=== PATIENT | female | born 1950 ===

== ENCOUNTER 2020-10-10 11:04 | Inpatient (IN) | payer OTHER, SELFPAY ==
[2020-10-10] VITALS (8 sets, daily range): BP systolic 123–168; BP diastolic 73–92; PULSE 80–89; RESP 16–24; TEMP 36.6–37.6; O2SAT 95–98
--- NOTE | 2020-10-10 11:21 | DI.CT_ITS ---
EXAM: CT ABDOMEN PELVIS W CLINICAL HISTORY: Abd pain, h/o diverticulitis, unknown abd surg. TECHNIQUE: Imaging Protocol: Axial computed tomography images with coronal and sagittal reformatted images were created and reviewed CONTRAST MATERIAL: Intravenous: Omnipaque 350 Contrast volume:100 ml Oral: no COMPARISON: No exams were available for comparison FINDINGS: ABDOMEN: Lung Bases: Normal where visualized. Liver: Normal density. No measurable mass. Gallbladder and biliary tract: Large calcified gallstone. No biliary dilation or wall thickening. Pancreas: Normal density, no abnormal calcifications or inflammatory process. Spleen: Normal. Kidneys: Normal size, contour and axis. No radiodense stones or obstructive uropathy. No masses seen. Small right renal cyst. Adrenal glands: No masses seen. Abdominal Aorta: Abdominal portion non-dilated. Mild atherosclerotic changes. PELVIS: Bladder: Symmetric distention, no gross wall thickening. Bowel: Small hiatal hernia. Normal appendix. Small bowel anastomosis. The colon appears somewhat f luid-filled. There is no evidence of diverticulitis. There is a hernia to the left of the umbilicus containing a loop of small bowel which does not appear to be obstructed. No obstruction or bowel wa ll thickening. Peritoneal cavity: No ascites, collection or mesenteric inflammatory response. Bones: Degenerative changes, greatest at L5-S1. Reproductive organs: Within normal limits. Lymph nodes: Unremarkable. Impression: Prior small bowel surgery with intact anastomosis. There is a hernia to the left of the umbilicus co ntaining a loop of small bowel without evidence of obstruction. No evidence of diverticulitis... RADIATION DOSE DELIVERED: 1,005.92mGy.cm Total DLP DATA REPOSITORY: All CT scans at this facility are submitted to the National Radiology Data Registry (NRDR) Dose Index Registry (DIR) with the [employer] (ACR). RADIATION OPTIMIZATION: All CT scans at this facility use at least one of these dose optimization te chniques: automated exposure control; mA and/or kV adjustment per patient size (includes targeted exa ms where dose is matched to clinical indication); or iterative reconstruction.
--- NOTE | 2020-10-10 11:24 | W.ED.GENAD ---
Discharge Plan Disposition Patient Disposition: [facility] INPATIENT Condition: Serious Discharge Details Chief Complaint: Abd Prob Clinical Impression: Hernia, UTI (urinary tract infection) Admit Date/Time: 10/10/20 14:49 Admit Provider: Danny Bryan Attending Provider: Danny Bryan Primary Care Provider: Tash Hess ED Provider: Danny Potter Medical Decision Making 71-year-old female presents for generalized weakness, lower abdominal pain, nausea, vomiting the past 2 days. Past medical history of diverticulitis with bowel resection. Sister is concerned about diverticulitis as she did present similarly in the past. Clinically she does not appear septic. Her abdomen is soft, minimally in the suprapubic region. There is no guarding, rebound, rigidity. Bowel sounds are equal throughout. Plan is to obtain IV access, give IV fluids, initiate laboratory values will obtain CT imaging of the abdomen and pelvis. Patient became nauseous, vomited x1. Given 4 mg IV Zofran. Repeat temperature is afebrile but patient is beginning to have chills. Laboratory values reveal a white blood cell count of 16.10. Lactate of 2.2. Creatinine 1.27 with a GFR of 41.36. LFTs unremarkable. We obtained 2 separate urine samples one was a clean-catch, one was a cath specimen. Both were nitrate positive with numerous bacteria. Both had epithelial cells however the clean-catch had a few epithelials and did have 3-[address] imaging obtained, reveals a ventral hernia with bowel but no signs of clear obstruction. I discussed the case both with the patient and her family. Family feels as though she is likely too ill to go home. Given her nonsurgical appearing abdominal examination I feel as though this is likely a medical admission. Given her elevated white count, lactate, nitrate positive urinalysis, I will initiate 2 g IV Rocephin and blood cultures have been obtained. The case was discussed with Dr. Bryan who was agreeable to admission however did want a surgical consultation given the CT findings. I then discussed the case with Dr. Hunter, who will personally evaluate the patient in the ER, please see her note. Medical Records Medical records reviewed: Yes I reviewed the patient's medical records. Imaging Data Radiologic Study: Attestation: I personally reviewed and interpreted this imaging study as follows: Imaging: CT Scan Radiologist's impression: Abdomen and pelvis with contrast. Read by radiology has a left small supraumbilical ventral hernia with a small loop of ileum within. No bowel wall thickening or bowel obstruction at this time. Associated anastomosis staple line and a mid small bowel loops from prior surgical resection of small bowel. No diverticulitis. Large calcified gallstone without CT evidence of cholecystitis. Lab Data Lab results reviewed: Yes I reviewed the patient's lab results. Lab results narrative: 10/10/20 14:00 Blood Blood Culture - Pending 10/10/20 13:45 Blood Blood Culture - Pending 10/10/20 13:23 Urine - Reflex from Ua Urine Culture - Pending Laboratory Tests Range/Units 10/10/20 10/10/20 10/10/20 11:26 11:26 11:26 WBC (4.4-10.8) 10^3/uL 16.10 H RBC (3.93-5.22) 10^6/uL 4.86 Hgb (11.2-15.7) g/dL 13.9 Hct (36.0-46.0) % 42.2 MCV (80-95) fL 86.8 MCH (27.0-33.0) pg 28.6 MCHC (32.0-36.0) % 32.9 RDW (11.7-14.6) % 12.4 Plt Count (130-400) 10^3/uL 358 MPV (8.0-11.0) fL 9.1 Immature Gran % 0.4 Neutrophils % 89.3 Lymphocytes % 3.9 Monocytes % 5.0 Eosinophils % 1.2 Basophils % 0.2 Nucleated RBC % % 0 Absolute Neutrophils (1.2-6.7) 10^3/uL 14.38 H Absolute Lymphocytes (1.2-3.4) 10^3/uL 0.63 L Absolute Monocytes (0.1-0.8) 10^3/uL 0.81 H Absolute Eosinophils (0.0-0.7) 10^3/uL 0.19 Absolute Basophils (0.0-0.2) 10^3/uL 0.03 VBG Lactate (0.6-1.4) mmol/L 2.2 H* Sodium (136-145) mmol/L 139 Potassium (3.5-5.1) mmol/L 4.0 Chloride (98-107) mmol/L 104 Carbon Dioxide (21.0-32.0) mmol/L 23.9 Anion Gap (3-11) mmol/L 11.1 H BUN (7-18) mg/dL 21 H Creatinine (0.55-1.02) mg/dL 1.27 H Estimated GFR/1.73 m2 (mL/min/1.73m2) 41.36 Glucose (74-106) mg/dL 138 H Calcium (8.5-10.1) mg/dL 10.3 H Total Bilirubin (0.2-1.0) mg/dL 0.7 AST (15-37) U/L 16 ALT (14-59) U/L 23 Alkaline Phosphatase (46-116) U/L 82 Total Protein (6.4-8.2) g/dL 8.2 Albumin (3.4-5.0) g/dL 4.0 Lipase (73-393) U/L 135 Urine Color (Yellow) Urine Clarity (Clear) Urine pH (5-8) Ur Specific [place] (1.005-1.025) Urine Protein (Negative) mg/dL Urine Ketones (Negative) mg/dL Urine Blood (Negative) Urine Nitrite (Negative) Urine Bilirubin (Negative) Urine Urobilinogen (Up TO 0.2) EU/dL Ur Leukocyte Esterase (Negative) Urine RBC Urine WBC Ur Epithelial Cells (Negative) HPF Urine Crystals Urine Bacteria (Negative) HPF Urine Mucus Ur Culture Indicated? Urine Glucose (Negative) mg/dL Range/Units 10/10/20 10/10/20 11:34 13:23 WBC (4.4-10.8) 10^3/uL RBC (3.93-5.22) 10^6/uL Hgb (11.2-15.7) g/dL Hct (36.0-46.0) % MCV (80-95) fL MCH (27.0-33.0) pg MCHC (32.0-36.0) % RDW (11.7-14.6) % Plt Count (130-400) 10^3/uL MPV (8.0-11.0) fL Immature Gran % Neutrophils % Lymphocytes % Monocytes % Eosinophils % Basophils % Nucleated RBC % % Absolute Neutrophils (1.2-6.7) 10^3/uL Absolute Lymphocytes (1.2-3.4) 10^3/uL Absolute Monocytes (0.1-0.8) 10^3/uL Absolute Eosinophils (0.0-0.7) 10^3/uL Absolute Basophils (0.0-0.2) 10^3/uL VBG Lactate (0.6-1.4) mmol/L Sodium (136-145) mmol/L Potassium (3.5-5.1) mmol/L Chloride (98-107) mmol/L Carbon Dioxide (21.0-32.0) mmol/L Anion Gap (3-11) mmol/L BUN (7-18) mg/dL Creatinine (0.55-1.02) mg/dL Estimated GFR/1.73 m2 (mL/min/1.73m2) Glucose (74-106) mg/dL Calcium (8.5-10.1) mg/dL Total Bilirubin (0.2-1.0) mg/dL AST (15-37) U/L ALT (14-59) U/L Alkaline Phosphatase (46-116) U/L Total Protein (6.4-8.2) g/dL Albumin (3.4-5.0) g/dL Lipase (73-393) U/L Urine Color (Yellow) Yellow Yellow Urine Clarity (Clear) Sl cloudy Clear Urine pH (5-8) 5.5 6.0 Ur Specific [place] (1.005-1.025) 1.025 1.020 Urine Protein (Negative) mg/dL Negative Negative Urine Ketones (Negative) mg/dL Negative Negative Urine Blood (Negative) Moderate H Small H Urine Nitrite (Negative) Positive H Positive H Urine Bilirubin (Negative) Negative Negative Urine Urobilinogen (Up TO 0.2) EU/dL 0.2 0.2 Ur Leukocyte Esterase (Negative) Negative Negative Urine RBC Not Applicable 3-5 H Urine WBC Not Applicable 3-5 Ur Epithelial Cells (Negative) HPF Many Few Urine Crystals Not Applicable Negative Urine Bacteria (Negative) HPF Moderate Many Urine Mucus Not Applicable Not Applicable Ur Culture Indicated? No/sq. contamination Yes Urine Glucose (Negative) mg/dL Negative Negative HPI General Mode of arrival: ambulatory. Date/Time Provider Initiated Documentation: 10/10/20 11:04. Limitations to Documentation: other (Baseline cognitive impairment). Information obtained by: patient and family. HPI Narrative: This is a 70-year-old female with past medical history that includes hypertension, hyperlipidemia, and cognitive decline over the last year or so. History was obtained through both her self and her Sister Kate. Patient sister states that she had diverticulitis roughly 1 year ago requiring what she believes to have been a partial bowel resection. This took place at [facility]. She has been living with her sister ever since this occurred. She states that over the past 24-48 hours she developed generalized weakness, lower abdominal pain, nausea and vomiting. Denies recent travel, sick exposure, illness, or trauma. Denies headache, fever, chest pain, shortness of breath, diarrhea. Patient reports normal bowel movement today. Denies dysuria. Patient is a rather vague and poor historian, her sister believes that she is at her baseline mental status. Related Data Home Medications Medication Instructions Recorded Confirmed atenolol 25 mg PO DAILY 10/10/20 10/10/20 atorvastatin 10 mg PO Q2D 10/10/20 10/10/20 donepezil [Aricept] 5 mg PO DAILY 10/10/20 10/10/20 lisinopril 2.5 mg PO DAILY 10/10/20 10/10/20 sertraline 50 mg PO DAILY 10/10/20 10/10/20 Allergies Allergy/AdvReac Type Severity Reaction Status Date / Time No Known Allergies Allergy Unverified 10/10/20 11:27 General Stated Complaint: Abd Prob BETH: 3 Review of Systems All systems reviewed & are unremarkable except as noted in HPI and below PFSH Medical History (Updated 10/10/20 @ 16:07 by Kristel Vega NP) Depression Diverticulitis Hernia HTN (hypertension) Hyperlipidemia Surgical History (Updated 10/10/20 @ 16:04 by Kristel Vega NP) H/O resection of small bowel Social History Smoking/Tobacco Use Status: Never Smoking risk assessment performed?: Yes Alcohol Intake: never Drug use: Never Do you feel safe at home: Yes Do you feel safe in your relationship?: Yes Exam Const General: cooperative, healthy appearing, comfortable and no acute distress Orientation: alert, awake, oriented to person, oriented to place and confused (Does not know exact date) HENMT Head: normal to inspection, normocephalic and atraumatic Mouth: moist mucous membranes Eyes General: appearance normal, both eyes and all related structures Conjunctivae: conjunctivae normal Sclera: sclerae normal Neck Neck: normal visual inspection, full ROM, no lymphadenopathy, no meningeal signs, trachea midline, supple and nontender Resp Effort & Inspection: normal respiratory effort and able to speak in complete sentences Auscultation: clear to auscultation bilaterally Cardio Rate: regular rate Rhythm: regular rhythm GI Inspection: scar (Vertical surgical incision-scar, well-healed) Palpation: soft, not firm, no guarding, no masses, no pulsatile masses and tender (Diffuse minimal suprapubic region) with no rebound tenderness Auscultation: normal bowel sounds Back/Spine/Pelvis Back: No back tenderness Skin General skin exam: no rashes or lesions noted Neuro General: patient alert, patient awake, moves all extremities and no focal motor deficits Speech: speech normal Gait: normal gait (Using a walker) Motor: muscle tone normal throughout Sensory Exam: no sensory deficits noted Extrem General: normal to inspection, full ROM and capillary refill normal Psych Appearance: grossly normal Mental Status: mental status grossly normal Course Vital Signs Vital signs: Vital Signs Temperature 36.6 C 10/10/20 11:09 Pulse 87 10/10/20 11:09 Respiratory Rate 22 10/10/20 11:09 Blood Pressure 152/92 H 10/10/20 11:09 Pulse Oximetry 96 10/10/20 11:09 Temperature 36.6 C 10/10/20 11:09 Temperature Source Temporal Artery Scan 10/10/20 11:09 Pulse 87 10/10/20 11:09 Respiratory Rate 22 10/10/20 11:09 Blood Pressure 152/92 H 10/10/20 11:09 Blood Pressure Position Sitting 10/10/20 11:09 Pulse Oximetry 96 10/10/20 11:09 Oxygen Delivery Method Room Air 10/10/20 11:09 Oxygen Flow Rate 0 10/10/20 11:09
[2020-10-10 11:32] LABS: Lactate 2.2 mmol/L (0.6-1.4)
[2020-10-10 11:34] LABS: Abs Immature Grans 0.06 10^3/uL (0.0-0.06); Absolute Eosinophil Count 0.19 10^3/uL (0.0-0.7); Absolute Monocyte Count 0.81 10^3/uL (0.1-0.8); Absolute Neutrophil Count 14.38 10^3/uL (1.2-6.7); Basophils % 0.2; Eosinophils % 1.2; HCT 42.2 % (36.0-46.0); HGB 13.9 g/dL (11.2-15.7); Immature Grans % 0.4; Lymphocytes % 3.9; MCH 28.6 pg (27.0-33.0); MCHC 32.9 % (32.0-36.0); MCV 86.8 fL (80-95); MPV 9.1 fL (8.0-11.0); Neutrophils % 89.3; Nucleated RBC 0 %; Platelet Count 358 10^3/uL (130-400); RBC 4.86 10^6/uL (3.93-5.22); RDW 12.4 % (11.7-14.6); RDW-SD 39.4 fL
[2020-10-10] MEDS: Normal Saline 1,000 ML 1000 ML IV ×2 (11:36→13:25)
[2020-10-10 11:41] LABS: Bilirubin Negative (Negative); Blood Moderate (Negative); Clarity Sl Cloudy (Clear); Glucose Negative (Negative); Ketones Negative (Negative); Leukocyte Esterase Negative (Negative); Nitrite Positive (Negative); Specific Gravity 1.025 (1.005-1.025); Urobilinogen 0.2 EU/dL (Up TO 0.2); pH 5.5 (5-8)
[2020-10-10 11:41] LABS: Absolute Basophil Count 0.03 10^3/uL (0.0-0.2); Absolute Lymphocyte Count 0.63 10^3/uL (1.2-3.4)
[2020-10-10] MEDS: Normal Saline Flush 10 ML SYR IVP ×2 (11:43→12:33)
[2020-10-10 11:47] LABS: ALT 23 U/L (14-59); AST 16 U/L (15-37); Alkaline Phosphatase 82 U/L (46-116); Anion Gap 11.1 mmol/L (3-11); BUN 21 mg/dL (7-18); Bilirubin, Total 0.7 mg/dL (0.2-1.0); CO2 23.9 mmol/L (21.0-32.0); CREATININE 1.27 mg/dL (0.55-1.02); Calcium 10.3 mg/dL (8.5-10.1); Chloride 104 mmol/L (98-107); Estimated GFR 41.36 (mL/min/1.73m2); Glucose 138 mg/dL (74-106); Lipase 135 U/L (73-393); Sodium 139 mmol/L (136-145); Total Protein 8.2 g/dL (6.4-8.2)
[2020-10-10 11:51] LABS: Bacteria Moderate HPF (Negative); C & S Indicated? No/Sq. Contamination
[2020-10-10 11:53] LABS: Epithelial Cells Many HPF (Negative)
[2020-10-10] MEDS: Omnipaque 350 MG/ML 100 ML BTL IV (12:32)
[2020-10-10] MEDS: Normal Saline - Diluent 50 ML VIAL IV (12:33)
--- NOTE | 2020-10-10 13:01 | NUR.NOTE ---
Nursing Note: family updated about status and plan of care. Awaiting results of CT. All questions answered at this time, will wait on results.
--- NOTE | 2020-10-10 13:23 | DI.VRAD_ITS ---
PROCEDURE INFORMATION: Exam: CT Abdomen And Pelvis With Contrast Exam date and time: 10/10/2020 12:35 PM Age: 70 years old Clinical indication: Other: Abd pain, h/o diverticulitis, unknown abd surg; Prior surgery; Surgery date: 6+ months; Surgery type: PT not sure the type TECHNIQUE: Imaging protocol: Computed tomography of the abdomen and pelvis with intravenous contrast. Radiation optimization: All CT scans at this facility use at least one of these dose optimization techniques: automated exposure control; mA and/or kV adjustment per patient size (includes targeted exams where dose is matched to clinical indication); or iterative reconstruction. Contrast material: 0MNIPAQUE 350; Contrast volume: 100 ml; Contrast route: INTRAVENOUS (IV); COMPARISON: No relevant prior studies available. FINDINGS: Lungs: The visualized lung bases are clear. Mediastinal space: Small hiatal hernia. Liver: Normal. No mass. Gallbladder and bile ducts: Large oval 3 cm calcified gallstone. No CT evidence cholecystitis. Pancreas: Normal. No ductal dilation. Spleen: Normal. No splenomegaly. Adrenal glands: Normal. No mass. Kidneys and ureters: Simple subcentimeter posterior right renal cyst measuring 9 mm. Stomach and bowel: Mid small bowel anastomotic staple line. Left supraumbilical ventral hernia with a loop of ileum within. No bowel wall thickening or bowel obstruction at this time. No significant colonic diverticula or evidence for acute diverticulitis. Appendix: Normal appendix. No evidence for appendicitis. Intraperitoneal space: Unremarkable. No free air. No significant fluid collection. Vasculature: Unremarkable. No abdominal aortic aneurysm. Lymph nodes: Unremarkable. No enlarged lymph nodes. Urinary bladder: Unremarkable as visualized. Reproductive: Unremarkable as visualized. Bones/joints: Unremarkable. No acute fracture. Soft tissues: Unremarkable. IMPRESSION: 1. Left small supraumbilical ventral hernia with a small loop ileum within. No bowel wall thickening or bowel obstruction at this time. Associated anastomotic staple line in a mid small bowel loops from prior surgical resection of small bowel. 2. No diverticulosis or diverticulitis. 3. Large calcified gallstone without CT evidence of cholecystitis. Dictated and Authenticated by: Jackie Cortez MD. Ordering:ANNE MARIE Delgado MD
[2020-10-10 13:29] LABS: Bilirubin Negative (Negative); Blood Small (Negative); Clarity Clear (Clear); Glucose Negative (Negative); Ketones Negative (Negative); Leukocyte Esterase Negative (Negative); Nitrite Positive (Negative); Urobilinogen 0.2 EU/dL (Up TO 0.2)
[2020-10-10 13:39] LABS: Epithelial Cells Few HPF (Negative)
[2020-10-10 13:40] LABS: Bacteria Many HPF (Negative); C & S Indicated? Yes; Crystals Negative HPF (Negative)
[2020-10-10] MEDS: Ondansetron 4 MG/2 ML VIAL (13:56)
[2020-10-10] MEDS: cefTRIAXone 2 GM/50 ML BAG IVPB (14:20)
--- NOTE | 2020-10-10 15:42 | HPE_ITS ---
Date of service: 10/10/20 Time of Service: 15:42 Assessment and Plan Assessment and plan (1) UTI (urinary tract infection): Start date: 10/10/20 Start time: 16:05 Status: Acute Assessment and plan: Found prior to admission, urinalysis with nitrates urine cx pending initiated on ceftriaxone Blood culture pending IVF Lactate 2.2 Qualifiers: Hematuria presence: with hematuria Urinary tract infection type: acute cystitis Qualified Code(s): N30.01 - Acute cystitis with hematuria (2) Hernia: Start date: 10/10/20 Start time: 16:06 Status: Acute Assessment and plan: Found on imaging question of obstruction or cause of pain. Surgery consulted, spoke to ED provider. (3) Memory deficit: Start date: 10/10/20 Start time: 16:34 Status: Acute Assessment and plan: No known diagnosis of dementia, but likely. She does take aricept will continue and she is unable to recall date and time without looking at a calender, also she has very poor fdc memory she did repeat conversation during evaluation. otherwise pleasant and cooperative (4) Depression: Start date: 10/10/20 Start time: 16:07 Status: Chronic Assessment and plan: Continue home dosing of sertraline Qualifiers: Depression Type: unspecified Qualified Code(s): F32.9 - Major depressive disorder, single episode, unspecified (5) HTN (hypertension): Start date: 10/10/20 Start time: 16:07 Status: Chronic Assessment and plan: Hold lisinopril at this time due to question of ADEBAYO. No baseline renal function, will give IVF Qualifiers: Hypertension type: essential hypertension Qualified Code(s): I10 - Essential (primary) hypertension (6) Hyperlipidemia: Start date: 10/10/20 Start time: 16:08 Status: Chronic Assessment and plan: Continue statin Qualifiers: Hyperlipidemia type: unspecified Qualified Code(s): E78.5 - Hyperlipidemia, unspecified (7) DVT prophylaxis: Start date: 10/10/20 Start time: 16:08 Status: Acute Assessment and plan: Heparin subcu (8) Discharge planning issues: Start date: 10/10/20 Start time: 16:08 Status: Acute Assessment and plan: Home when medically cleared. above case discussed with Dr. Bryan who is in agreement History of Present Illness History of Present Illness Chief Complaint: Dehydration, UTI Narrative: 70 y.o female with PMH of partial SB resection around 10/14/19 for ruptured jejunal diverticulitis with peritoneal abscesses with drain placement, HTN, HLD, depression, memory loss presents to [facility] ED today with c/o abdominal pain. Labs in the ED revealing for WBC 16.10 lactate 2.2 elevated BUN and Creatinine however there are no baseline labs and this could be baseline, urine positive for nitrates. Imaging revealing IMPRESSION: 1. Left small supraumbilical ventral hernia with a small loop ileum within. No bowel wall thickening or bowel obstruction at this time. Associated anastomotic staple line in a mid small bowel loops from prior surgical resection of small bowel. 2. No diverticulosis or diverticulitis. 3. Large calcified gallstone without CT evidence of cholecystitis. She has been asked to be admitted for further management by hospitalist team. Surgery has been consulted to evaluate patient for hernia. She will be placed on IVF, repeat lactate in am, antiemetics, analgesics, ceftriaxone for UTI, blood culture pending, urine culture pending. Review of Systems All systems reviewed & are unremarkable except as noted in HPI and below PFSH Medical History (Updated 10/10/20 @ 16:34 by Kristel Vega NP) Depression Diverticulitis Hernia HTN (hypertension) Hyperlipidemia Memory deficit Surgical History (Updated 10/10/20 @ 16:04 by Kristel Vega NP) H/O resection of small bowel Social History Smoking/Tobacco Use Status: Never Smoking risk assessment performed?: Yes Alcohol Intake: never Drug use: Never Do you feel safe at home: Yes Do you feel safe in your relationship?: Yes Meds Home Medications and Allergies Home Medications Medication Instructions Recorded Confirmed Type atenolol 25 mg PO DAILY 10/10/20 10/10/20 History atorvastatin 10 mg PO Q2D 10/10/20 10/10/20 History donepezil [Aricept] 5 mg PO DAILY 10/10/20 10/10/20 History lisinopril 2.5 mg PO DAILY 10/10/20 10/10/20 History sertraline 50 mg PO DAILY 10/10/20 10/10/20 History Allergies Allergy/AdvReac Type Severity Reaction Status Date / Time No Known Allergies Allergy Unverified 10/10/20 11:27 Exam Const General: cooperative, healthy appearing, comfortable and no acute distress Nutritional Appearance: overweight Orientation: alert, awake, oriented to person and oriented to place Other: Poor short term memory HENMT Head: normal to inspection, normocephalic and atraumatic Ears: hearing grossly normal bilaterally Eyes Eyelids: eyelids normal Conjunctivae: conjunctivae normal Sclera: sclerae normal Pupils: PERRL EOM: EOM intact bilaterally Neck Neck: normal visual inspection, full ROM, no lymphadenopathy and no JVD Thyroid: thyroid normal Lymphatic: no lymphadenopathy noted and no lymphedema noted Chest Chest: normal inspection of the chest Resp Effort & Inspection: normal respiratory effort and able to speak in complete sentences Auscultation: clear to auscultation bilaterally Cardio Jugular venous pressure: no JVD Rate: regular rate Rhythm: regular rhythm Heart Sounds: S1 normal, S2 normal and murmur diastolic GI Inspection: obesity and scar Palpation: soft and no hepatosplenomegaly Auscultation: normal bowel sounds General: deferred Back/Spine/Pelvis Back: no CVA tenderness Skin General skin exam: erythema (RL herrmann, ) Neuro General: patient alert, patient awake and oriented (lack of manager long term care memory) Patient Orientation: Person and Place Cranial Nerves: EOM intact bilaterally Cognition: normal cognition (as above) Speech: speech normal Extrem General: edema (trace) Laterality: bilateral Psych Appearance: grossly normal Mental Status: mental status grossly normal Speech and Movement: speech and movement normal Mood: congruent mood Results Labs Result diagrams: 10/10/20 11:26 10/10/20 11:26 Labs: Laboratory Results - last 24 hr 10/10/20 10/10/20 10/10/20 11:26 11:26 11:26 WBC 16.10 H RBC 4.86 Hgb 13.9 Hct 42.2 MCV 86.8 MCH 28.6 MCHC 32.9 RDW 12.4 Plt Count 358 MPV 9.1 Immature Gran % 0.4 Neutrophils % 89.3 Lymphocytes % 3.9 Monocytes % 5.0 Eosinophils % 1.2 Basophils % 0.2 Nucleated RBC % 0 Absolute Neutrophils 14.38 H Absolute Lymphocytes 0.63 L Absolute Monocytes 0.81 H Absolute Eosinophils 0.19 Absolute Basophils 0.03 VBG Lactate 2.2 H* Sodium 139 Potassium 4.0 Chloride 104 Carbon Dioxide 23.9 Anion Gap 11.1 H BUN 21 H Creatinine 1.27 H Estimated GFR/1.73 m2 41.36 Glucose 138 H Calcium 10.3 H Total Bilirubin 0.7 AST 16 ALT 23 Alkaline Phosphatase 82 Total Protein 8.2 Albumin 4.0 Lipase 135 Urine Color Urine Clarity Urine pH Ur Specific [place] Urine Protein Urine Ketones Urine Blood Urine Nitrite Urine Bilirubin Urine Urobilinogen Ur Leukocyte Esterase Urine RBC Urine WBC Ur Epithelial Cells Urine Crystals Urine Bacteria Urine Mucus Ur Culture Indicated? Urine Glucose 10/10/20 10/10/20 11:34 13:23 WBC RBC Hgb Hct MCV MCH MCHC RDW Plt Count MPV Immature Gran % Neutrophils % Lymphocytes % Monocytes % Eosinophils % Basophils % Nucleated RBC % Absolute Neutrophils Absolute Lymphocytes Absolute Monocytes Absolute Eosinophils Absolute Basophils VBG Lactate Sodium Potassium Chloride Carbon Dioxide Anion Gap BUN Creatinine Estimated GFR/1.73 m2 Glucose Calcium Total Bilirubin AST ALT Alkaline Phosphatase Total Protein Albumin Lipase Urine Color Yellow Yellow Urine Clarity Sl cloudy Clear Urine pH 5.5 6.0 Ur Specific [place] 1.025 1.020 Urine Protein Negative Negative Urine Ketones Negative Negative Urine Blood Moderate H Small H Urine Nitrite Positive H Positive H Urine Bilirubin Negative Negative Urine Urobilinogen 0.2 0.2 Ur Leukocyte Esterase Negative Negative Urine RBC Not Applicable 3-5 H Urine WBC Not Applicable 3-5 Ur Epithelial Cells Many Few Urine Crystals Not Applicable Negative Urine Bacteria Moderate Many Urine Mucus Not Applicable Not Applicable Ur Culture Indicated? No/sq. contamination Yes Urine Glucose Negative Negative Last Vital Signs Temp 36.8 C 10/10/20 15:25 Pulse 84 10/10/20 15:25 Resp 16 10/10/20 15:25 BP 164/73 H 10/10/20 15:25 Pulse Ox 97 10/10/20 15:25 COVID-19 Screening Have you, or household traveled for leisure in last 14 days?: No Had IN PERSON contact w/suspected or confirmed C-19 person: No
--- NOTE | 2020-10-10 15:57 | W.SURGCON ---
Date of service: 10/10/20 Time of Service: 15:58 Assessment and Plan Assessment and plan (1) Abdominal pain: Status: Acute Assessment and plan: Partial SBO versus partially obstructed hernia. We will continue with hydration. And reevaluate in a.m. Currently she does not require any surgery at this time. I did discuss this with the patient's sister who is her primary caregiver and who she lives with. 60 minutes spent in consultation today. History of Present Illness Narrative: Tika Kamara is a 70-year-old female who presented to the ER today complaining of abdominal pain nausea vomiting and diarrhea for 24 hours duration. Patient has pretty significant dementia and does not even recall having her surgery on 10/14/2019 at [place]. She had a perforated diverticulum of the jejunum and underwent primary and resection and anastomosis. Her course was complicated by abscesses. These were percutaneously drained at [facility]. She was in [place] for 2 weeks. Since that time she has lived with her sister. Her sister is her primary caregiver and provides her history for her today. Patient developed abdominal pain last evening. She had 2 episodes of diarrhea today and vomited x1 today. She is not had much of an appetite. She is complaining of abdominal pain and her sister brought her into the ER. Again patient cannot give any history. At the time of exam. She has no abdominal pain. She denies being nauseated but she has dementia and is not a reliable historian. She has been told she has mild cognitive deficit. But she does not remember even having her surgery or what it was for last year. On clinical exam she currently has no peritoneal signs. She has no signs of sepsis. She does not have an acute abdomen. Her vital signs are stable and she is afebrile. She does have an elevated white count. I did personally review her CT. She does have some dilated loops in the pelvis and may have a early or evolving small bowel obstruction. This is her only surgery was this abdominal surgery last New Year's [place]. She also currently has good bowel sounds Her sister says she has never had a heart attack or stroke. She is not on any blood thinners. She is not diabetic. She is not a smoker. She had no problems with anesthesia. Her course was complicated by intra-abdominal abscess postoperatively that was drained. She also had C. difficile after the surgery. And she has developed hernia. I did discuss the etiology and role of treatment of the incisional hernia. Prior to this episode her sister states that she does not normally complain of any abdominal pain. She does not have any nausea and vomiting. She is never complained of having any problems with her bowels. It sounds like this is the only episode. Is unclear if this is from partial small bowel obstruction from scar tissue or she had a incarcerated hernia that resolved. At this time her abdomen is soft she has no pain with deep palpation she has good bowel sounds and I do not think surgery is warranted If she does start developing more problems and complaining of abdominal pain with her activities of daily living then I would say that we definitely need to do a hernia repair. At this point I think it is more something just to know about its there and keep an eye on it. I did discuss with her sister that she does have a bad UTI and we would like to keep her in the hospital overnight on IV antibiotics and hydrate her up. I will reevaluate in the a.m. and see how she is doing. Consults Consult date: 10/10/20 Review of Systems Unobtainable due to mental condition [facility] Medical History Depression Diverticulitis Hernia HTN (hypertension) Hyperlipidemia Memory deficit Surgical History H/O resection of small bowel Social History Smoking/Tobacco Use Status: Never Smoking risk assessment performed?: Yes Alcohol Intake: never Drug use: Never Do you feel safe at home: Yes Do you feel safe in your relationship?: Yes Exam Const General: cooperative, healthy appearing, comfortable, no acute distress, well developed and well groomed Nutritional Appearance: average body habitus and well nourished Orientation: alert, awake and oriented x3 HENMT Head: normal to inspection, normocephalic and atraumatic Ears: hearing grossly normal bilaterally and external ears normal General nose exam: external nose normal Face and sinus: normal facial exam and sinuses nontender Mouth: oral mucosae normal, lip normal, tongue normal and moist mucous membranes Teeth and gingiva: dentition normal Eyes General: appearance normal, both eyes and all related structures Conjunctivae: conjunctivae normal Sclera: sclerae normal Pupils: PERRL Neck Neck: normal visual inspection and full ROM Chest Chest: normal inspection of the chest Resp Effort & Inspection: normal respiratory effort, able to speak in complete sentences, no cough, no nasal flaring, not tachypneic and no use of accessory muscles Auscultation: clear to auscultation bilaterally, no rales, no rhonchi and no wheezes Cardio Jugular venous pressure: no JVD Rate: regular rate Rhythm: regular rhythm GI Inspection: normal to inspection, no edema and non-distended Palpation: soft, no masses, nontender and No ascites Auscultation: normal bowel sounds Skin General skin exam: no rashes or lesions noted Trauma: no lacerations or abrasions Neuro General: patient alert, oriented Patient Orientation: Person, moves all extremities, no focal motor deficits and CN's II-XI intact bilaterally Cognition: abnormal cognition Speech: speech normal Extrem General: normal to inspection, full ROM and no clubbing, cyanosis or edema Psych Appearance: grossly normal and well kempt Other: Patient becomes easily agitated when you ask her detailed questions. Results Last Vital Signs Temp 36.8 C 10/10/20 15:52 Pulse 84 10/10/20 15:52 Resp 16 10/10/20 15:52 BP 164/73 H 10/10/20 15:52 Pulse Ox 97 10/10/20 15:52 Labs Result diagrams: 10/10/20 11:26 10/10/20 11:26 Labs: Laboratory Results - last 24 hr 10/10/20 10/10/20 10/10/20 11:26 11:26 11:26 WBC 16.10 H RBC 4.86 Hgb 13.9 Hct 42.2 MCV 86.8 MCH 28.6 MCHC 32.9 RDW 12.4 Plt Count 358 MPV 9.1 Immature Gran % 0.4 Neutrophils % 89.3 Lymphocytes % 3.9 Monocytes % 5.0 Eosinophils % 1.2 Basophils % 0.2 Nucleated RBC % 0 Absolute Neutrophils 14.38 H Absolute Lymphocytes 0.63 L Absolute Monocytes 0.81 H Absolute Eosinophils 0.19 Absolute Basophils 0.03 VBG Lactate 2.2 H* Sodium 139 Potassium 4.0 Chloride 104 Carbon Dioxide 23.9 Anion Gap 11.1 H BUN 21 H Creatinine 1.27 H Estimated GFR/1.73 m2 41.36 Glucose 138 H Calcium 10.3 H Total Bilirubin 0.7 AST 16 ALT 23 Alkaline Phosphatase 82 Total Protein 8.2 Albumin 4.0 Lipase 135 Urine Color Urine Clarity Urine pH Ur Specific [place] Urine Protein Urine Ketones Urine Blood Urine Nitrite Urine Bilirubin Urine Urobilinogen Ur Leukocyte Esterase Urine RBC Urine WBC Ur Epithelial Cells Urine Crystals Urine Bacteria Urine Mucus Ur Culture Indicated? Urine Glucose 10/10/20 10/10/20 11:34 13:23 WBC RBC Hgb Hct MCV MCH MCHC RDW Plt Count MPV Immature Gran % Neutrophils % Lymphocytes % Monocytes % Eosinophils % Basophils % Nucleated RBC % Absolute Neutrophils Absolute Lymphocytes Absolute Monocytes Absolute Eosinophils Absolute Basophils VBG Lactate Sodium Potassium Chloride Carbon Dioxide Anion Gap BUN Creatinine Estimated GFR/1.73 m2 Glucose Calcium Total Bilirubin AST ALT Alkaline Phosphatase Total Protein Albumin Lipase Urine Color Yellow Yellow Urine Clarity Sl cloudy Clear Urine pH 5.5 6.0 Ur Specific [place] 1.025 1.020 Urine Protein Negative Negative Urine Ketones Negative Negative Urine Blood Moderate H Small H Urine Nitrite Positive H Positive H Urine Bilirubin Negative Negative Urine Urobilinogen 0.2 0.2 Ur Leukocyte Esterase Negative Negative Urine RBC Not Applicable 3-5 H Urine WBC Not Applicable 3-5 Ur Epithelial Cells Many Few Urine Crystals Not Applicable Negative Urine Bacteria Moderate Many Urine Mucus Not Applicable Not Applicable Ur Culture Indicated? No/sq. contamination Yes Urine Glucose Negative Negative
--- NOTE | 2020-10-10 15:59 | NUR.NOTE ---
Nursing Note: sister Kate updated by this nurse as to room assignment and to ensure no other questions needed answering. No further questions posed by family.
--- NOTE | 2020-10-10 16:03 | NUR.NOTE ---
Nursing Note: Spoke with Lola, Nursing Gang Supervisor [employer] [facility]. She will fax to M/S the Op report, CT report and Discharge summary. She will fax the Echo if she finds that one was done. I gave her [facility] fax number to send the information to. Bri Bradshaw
[2020-10-10] MEDS: Normal Saline 1,000 ML 125 ML IV ×2 (16:20→23:52)
[2020-10-10] MEDS: Heparin 5,000 UNITS/ML VIAL 5000 UNITS SC ×2 (16:24→23:24)
[2020-10-10] MEDS: Atorvastatin 20 MG TAB 10 MG PO (16:24)
[2020-10-11] MEDS: Acetaminophen 325 MG TAB 650 MG PO (01:07)
[2020-10-11 05:39] VITALS: TEMP 37
[2020-10-11 07:01] LABS: Lactate 0.5 mmol/L (0.6-1.4)
[2020-10-11 07:04] LABS: Abs Immature Grans 0.04 10^3/uL (0.0-0.06); Absolute Basophil Count 0.02 10^3/uL (0.0-0.2); Absolute Eosinophil Count 0.31 10^3/uL (0.0-0.7); Absolute Monocyte Count 0.56 10^3/uL (0.1-0.8); Basophils % 0.3; Eosinophils % 4.4; HCT 33.7 % (36.0-46.0); HGB 11.1 g/dL (11.2-15.7); Immature Grans % 0.6; Lymphocytes % 22.5; MCH 28.4 pg (27.0-33.0); MCHC 32.9 % (32.0-36.0); MCV 86.2 fL (80-95); MPV 9.2 fL (8.0-11.0); Monocytes % 7.9; Neutrophils % 64.3; Nucleated RBC 0 %; Platelet Count 245 10^3/uL (130-400); RBC 3.91 10^6/uL (3.93-5.22); RDW 12.8 % (11.7-14.6); RDW-SD 39.7 fL; WBC 7.11 10^3/uL (4.4-10.8)
[2020-10-11 07:09] LABS: Absolute Neutrophil Count 4.57 10^3/uL (1.2-6.7)
[2020-10-11 07:10] LABS: Anion Gap 9.4 mmol/L (3-11); BUN 14 mg/dL (7-18); CO2 23.6 mmol/L (21.0-32.0); CREATININE 1.12 mg/dL (0.55-1.02); Calcium 8.6 mg/dL (8.5-10.1); Chloride 108 mmol/L (98-107); Estimated GFR 47.82 (mL/min/1.73m2); Glucose 94 mg/dL (74-106); Magnesium 1.8 mg/dL (1.8-2.4); Potassium 3.7 mmol/L (3.5-5.1); Sodium 141 mmol/L (136-145)
[2020-10-11 07:39] VITALS: BP 172/84; PULSE 75; RESP 19; TEMP 36.9; O2SAT 97
[2020-10-11] MEDS: Normal Saline 1,000 ML 125 ML IV (07:51)
[2020-10-11] MEDS: Atenolol 25 MG TAB PO (07:51)
[2020-10-11] MEDS: Donepezil 5 MG TAB PO (07:51)
[2020-10-11] MEDS: Sertraline 50 MG TAB PO (07:51)
[2020-10-11] MEDS: Heparin 5,000 UNITS/ML VIAL 5000 UNITS SC ×3 (07:51→23:41)
--- NOTE | 2020-10-11 07:53 | W.PM.PROGNOT ---
Documented by User: JAMIE Reis 10/11/20 07:56 Date of Service Date of service: 10/11/20 Time of Service: 07:53 Assessment and Plan Assessment and plan (1) Abdominal pain: Status: Acute Assessment and plan: Partial SBO versus partially obstructed hernia. Patient does not have any abdominal pain this morning. We will continue with hydration. Currently she does not require any surgery at this time. Subjective Subjective Interval history since last seen: Arrived with patient sitting at the edge of bed. She denies having any abdominal pain at this time. She does not recall having any abdominal pain yesterday. She is unsure if she is passing gas. Exam Const General: cooperative, healthy appearing and comfortable Orientation: alert, awake and confused Resp Effort & Inspection: normal respiratory effort, no audible wheezes and no cough Objective Last Vital Signs Temp 36.9 C 10/11/20 07:39 Pulse 75 10/11/20 07:39 Resp 19 10/11/20 07:39 BP 172/84 H 10/11/20 07:39 Pulse Ox 97 10/11/20 07:39 Laboratory Results - last 24 hr 10/10/20 10/10/20 10/10/20 11:26 11:26 11:26 WBC 16.10 H RBC 4.86 Hgb 13.9 Hct 42.2 MCV 86.8 MCH 28.6 MCHC 32.9 RDW 12.4 Plt Count 358 MPV 9.1 Immature Gran % 0.4 Neutrophils % 89.3 Lymphocytes % 3.9 Monocytes % 5.0 Eosinophils % 1.2 Basophils % 0.2 Nucleated RBC % 0 Absolute Neutrophils 14.38 H Absolute Lymphocytes 0.63 L Absolute Monocytes 0.81 H Absolute Eosinophils 0.19 Absolute Basophils 0.03 VBG Lactate 2.2 H* Sodium 139 Potassium 4.0 Chloride 104 Carbon Dioxide 23.9 Anion Gap 11.1 H BUN 21 H Creatinine 1.27 H Estimated GFR/1.73 m2 41.36 Glucose 138 H Calcium 10.3 H Magnesium Total Bilirubin 0.7 AST 16 ALT 23 Alkaline Phosphatase 82 Total Protein 8.2 Albumin 4.0 Lipase 135 Urine Color Urine Clarity Urine pH Ur Specific [place] Urine Protein Urine Ketones Urine Blood Urine Nitrite Urine Bilirubin Urine Urobilinogen Ur Leukocyte Esterase Urine RBC Urine WBC Ur Epithelial Cells Urine Crystals Urine Bacteria Urine Mucus Ur Culture Indicated? Urine Glucose 10/10/20 10/10/20 10/11/20 11:34 13:23 06:45 WBC RBC Hgb Hct MCV MCH MCHC RDW Plt Count MPV Immature Gran % Neutrophils % Lymphocytes % Monocytes % Eosinophils % Basophils % Nucleated RBC % Absolute Neutrophils Absolute Lymphocytes Absolute Monocytes Absolute Eosinophils Absolute Basophils VBG Lactate Sodium 141 Potassium 3.7 Chloride 108 H Carbon Dioxide 23.6 Anion Gap 9.4 BUN 14 D Creatinine 1.12 H Estimated GFR/1.73 m2 47.82 Glucose 94 Calcium 8.6 Magnesium 1.8 Total Bilirubin AST ALT Alkaline Phosphatase Total Protein Albumin Lipase Urine Color Yellow Yellow Urine Clarity Sl cloudy Clear Urine pH 5.5 6.0 Ur Specific [place] 1.025 1.020 Urine Protein Negative Negative Urine Ketones Negative Negative Urine Blood Moderate H Small H Urine Nitrite Positive H Positive H Urine Bilirubin Negative Negative Urine Urobilinogen 0.2 0.2 Ur Leukocyte Esterase Negative Negative Urine RBC Not Applicable 3-5 H Urine WBC Not Applicable 3-5 Ur Epithelial Cells Many Few Urine Crystals Not Applicable Negative Urine Bacteria Moderate Many Urine Mucus Not Applicable Not Applicable Ur Culture Indicated? No/sq. contamination Yes Urine Glucose Negative Negative 10/11/20 10/11/20 06:45 06:45 WBC 7.11 D RBC 3.91 L Hgb 11.1 L D Hct 33.7 L D MCV 86.2 MCH 28.4 MCHC 32.9 RDW 12.8 Plt Count 245 D MPV 9.2 Immature Gran % 0.6 Neutrophils % 64.3 Lymphocytes % 22.5 Monocytes % 7.9 Eosinophils % 4.4 Basophils % 0.3 Nucleated RBC % 0 Absolute Neutrophils 4.57 Absolute Lymphocytes 1.60 Absolute Monocytes 0.56 Absolute Eosinophils 0.31 Absolute Basophils 0.02 VBG Lactate 0.5 L Sodium Potassium Chloride Carbon Dioxide Anion Gap BUN Creatinine Estimated GFR/1.73 m2 Glucose Calcium Magnesium Total Bilirubin AST ALT Alkaline Phosphatase Total Protein Albumin Lipase Urine Color Urine Clarity Urine pH Ur Specific [place] Urine Protein Urine Ketones Urine Blood Urine Nitrite Urine Bilirubin Urine Urobilinogen Ur Leukocyte Esterase Urine RBC Urine WBC Ur Epithelial Cells Urine Crystals Urine Bacteria Urine Mucus Ur Culture Indicated? Urine Glucose Documented by User: Kate Hunter, 10/11/20 16:30 Assessment and Plan Assessment and plan (1) Abdominal pain: Status: Acute Assessment and plan: pt seen and examined. good bs and no pain. d/w hospitalists service. no indication for surgery at this time. pt does not have a hx of pain. F/u in sx clinic if she starts having pain regularly or obstructive s/s. will re-eval at our request
--- NOTE | 2020-10-11 08:00 | DI.RAD_ITS ---
EXAM: XR ABDOMEN FLAT UPRIGHT CLINICAL HISTORY: SBO. TECHNIQUE: 2D digital imaging was performed. COMPARISON: CT scan from yesterday FINDINGS: Large lamellated gallstone in the right upper quadrant is noted, seen on the recent CT scan. There i s no free air. No obvious bowel obstruction. The stomach is not distended. Air is seen in the colo n. No obvious calcification over the kidneys. IMPRESSION: Are all the highly is pattern. No high-grade bowel obstruction. Large gallstone noted. DATA REPOSITORY: RADIATION DOSE DELIVERED:
--- NOTE | 2020-10-11 08:57 | INITIAL_ITS ---
- If Service Date Differs Date of service: 10/11/20 Time of Service: 17:52 Care Management Initial Assess REASON FOR HOSPITALIZATION:: Dehydration, UTI PAST MEDICAL HISTORY/PAST SURGICAL HISTORY:: Abdominal pain, depression, diverticulitis, hernia, HTN, hyperlipidemia, memory deficit, resection of small bowel, hypertension, right parotid adenoma, OA bilateral knees, Chacon's Cyst, hx of hypercalcimia past increased andometer stripe without bleeding, intertrigo bacilio, 2 frontal AK's treated with LN2; crast for AK's PREVIOUS FUNCTIONAL STATUS/SOCIAL/FAMILY SUPPORTS:: Tika resides with her sister, Kate who serves as her primary caregiver. 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 CURRENT FUNCTIONAL STATUS:: Tika is forgetful with some baseline dementia per provider. She is pleasant in interaction and up independently with a walker. ADVANCE DIRECTIVES:: On file: Kate Zamudio, sister, as agent. Has patient been provided with info about the portal/API?: No Did the patient sign up for the portal?: No CODE STATUS:: DNI INSURANCE COVERAGE / FINANCIAL ISSUES:: Medicare. [place]. CBA CURRENT HOME/COMMUNITY SERVICES/EQUIPMENT:: [place] meals, grab bars. Resides with sister who provides care and oversight. PRIMARY CARE PHYSICIAN:: Tash Hess POTENTIAL DISCHARGE NEEDS:: Follow up appointments. PATIENT/FAMILY EDUCATION NEEDS:: Review discharge instructions. ANTICIPATED BARRIERS TO DISCHARGE:: None identified. TRANSPORTATION:: Via private vehicle. PLAN:: Tika continues to be treated conservatively with hydration at this time, per provider. Anticipate she will return home with no additional services, via private vehicle with family. CM continues to follow.
--- NOTE | 2020-10-11 10:44 | PHA.REVIEW ---
Pharmacy Admission Review - Admission Clinical Review (Last Updated 10/10/20 @ 21:27 by Kate Hunter DO) Abdominal pain (Acute) Memory deficit (Acute) Discharge planning issues (Acute) DVT prophylaxis (Acute) UTI (urinary tract infection) (Acute) Hernia (Acute) No Known Allergies Allergy (Unverified 10/10/20 11:27) Height 5 ft 6.93 in Weight 89.5 kg - Renal Dosing Renal Dosing: BUN 14 mg/dL (7-18) D 10/11/20 06:45 Creatinine 1.12 mg/dL (0.55-1.02) H 10/11/20 06:45 Medications needing adjustments: Reviewed (Crcl ~52 mL/min using adjusted body weight, current meds okay) - Anticoagulation Anticoagulation: Hgb 11.1 g/dL (11.2-15.7) L D 10/11/20 06:45 Hct 33.7 % (36.0-46.0) L D 10/11/20 06:45 Plt Count 245 10^3/uL (130-400) D 10/11/20 06:45 Creatinine 1.12 mg/dL (0.55-1.02) H 10/11/20 06:45 DVT Prohphylaxis: Reviewed Medications: Heparin Therapeutic Anticoagulation: N/A - Opiate Usage Evaluate Pain Scale/Pains Meds: Reviewed Scheduled Bowel Reg ordered if on Opiates?: No (has prn meds ordered) - Relevant Labs Sodium 141 mmol/L (136-145) 10/11/20 06:45 Potassium 3.7 mmol/L (3.5-5.1) 10/11/20 06:45 Chloride 108 mmol/L (98-107) H 10/11/20 06:45 Magnesium 1.8 mg/dL (1.8-2.4) 10/11/20 06:45 Electrolytes, C-Reactive P, ESR: Reviewed - DM Control DM Control: Glucose 94 mg/dL (74-106) 10/11/20 06:45 Insulin Dosing: N/A - Heart Failure/TN EF%, ERIKA's, B-Blockers, Diuretics: N/A - BP Control BP Control: Blood Pressure 172/84 Blood Pressure 123/77 If elevated: Reviewed (BP elevated prior to AM meds) - Qtc Review If Elevated: N/A - IV to PO Switch IV Medications: Reviewed - Home Meds Home Med List reviewed: Reviewed Relevent Home Meds Not ordered & why?: lisinopril (on hold due to possible ADEBAYO) - Current meds Current Medication Order Review: Intervened (Discontinued DI meds (already given) and duplicate med orders.) - Comments Comments/Follow Ups: Watch BP, SCr, labs and for med changes (need of BM meds, renal dose adjustments, lisinopril)
[2020-10-11] MEDS: cefTRIAXone 1 GM/50 ML BAG IVPB (13:41)
--- NOTE | 2020-10-11 13:43 | W.PM.PROGNOT ---
Date of Service Date of service: 10/11/20 Time of Service: 13:48 Assessment and Plan Assessment and plan (1) UTI (urinary tract infection): Start date: 10/11/20 Start time: 13:50 Status: Acute Assessment and plan: Found prior to admission, urinalysis with nitrates urine cx growing gram negative rods greater than [id number] Blood culture pending IVF Lactate normalized Ceftriaxone day 2 Qualifiers: Urinary tract infection type: acute cystitis Hematuria presence: with hematuria Qualified Code(s): N30.01 - Acute cystitis with hematuria (2) Hernia: Start date: 10/11/20 Start time: 13:51 Status: Acute Assessment and plan: Found on imaging question of obstruction or cause of pain. Surgery consulted, at this time they are monitoring her. (3) Memory deficit: Start date: 10/11/20 Start time: 13:52 Status: Acute Assessment and plan: Per surgery note significant dementia, this is evident in conversation and suspected this to be true. Unable to recall facts. She is usually seen at [facility]. (4) Depression: Start date: 10/11/20 Start time: 13:53 Status: Chronic Assessment and plan: Continue home dosing of sertraline Qualifiers: Depression Type: unspecified Qualified Code(s): F32.9 - Major depressive disorder, single episode, unspecified (5) HTN (hypertension): Start date: 10/11/20 Start time: 13:53 Status: Chronic Assessment and plan: Hold lisinopril at this time due to question of ADEBAYO. No baseline renal function, will give IVF Renal function improving, will continue to hold lisinopril She does have 3+ pitting edema to bilateral lower extremites worse to right than left will cut IVF to 75 monitor daily wts low sodium diet Qualifiers: Hypertension type: essential hypertension Qualified Code(s): I10 - Essential (primary) hypertension (6) Hyperlipidemia: Start date: 10/11/20 Start time: 13:55 Status: Chronic Assessment and plan: Continue statin Qualifiers: Hyperlipidemia type: unspecified Qualified Code(s): E78.5 - Hyperlipidemia, unspecified (7) DVT prophylaxis: Start date: 10/11/20 Start time: 13:55 Status: Acute Assessment and plan: Heparin subcu (8) Discharge planning issues: Start date: 10/11/20 Start time: 13:56 Status: Acute Assessment and plan: Home when medically cleared. She lives with her sister who takes care of her above case discussed with Dr. Bryan who is in agreement Subjective Subjective Patient reports: other Interval history since last seen: Patient sitting up in chair crying when walking into room. She did not want to discuss why she was crying. Per nursing she was joking and happy this morning. She did speak to her sister but did not want to talk about why she was upset. She denies pain, nausea, vomiting. Urine cx with gram negative bryce. continue ceftriaxone day 2 Exam Const General: cooperative, healthy appearing, comfortable, no acute distress and other (visibly upset) Nutritional Appearance: overweight Orientation: alert, awake, oriented to person and oriented to place HENAZ Head: normal to inspection, normocephalic and atraumatic Ears: hearing grossly normal bilaterally Eyes Eyelids: eyelids normal Conjunctivae: conjunctivae normal Sclera: sclerae normal Pupils: PERRL EOM: EOM intact bilaterally Neck Neck: normal visual inspection, full ROM, no lymphadenopathy and no JVD Thyroid: thyroid normal Lymphatic: no lymphadenopathy noted and no lymphedema noted Chest Chest: normal inspection of the chest Resp Effort & Inspection: normal respiratory effort and able to speak in complete sentences Auscultation: clear to auscultation bilaterally Cardio Jugular venous pressure: no JVD Rate: regular rate Rhythm: regular rhythm Heart Sounds: S1 normal, S2 normal and murmur diastolic GI Inspection: obesity and scar Palpation: soft and no hepatosplenomegaly Auscultation: normal bowel sounds General: deferred Back/Spine/Pelvis Back: no CVA tenderness Skin General skin exam: erythema (RL herrmann, ) Neuro General: patient alert, patient awake and oriented (lack of [facility] memory) Patient Orientation: Person and Place Cranial Nerves: EOM intact bilaterally Cognition: normal cognition (as above) Speech: speech normal Extrem General: edema (trace) Laterality: bilateral Psych Appearance: grossly normal Mental Status: mental status grossly normal Speech and Movement: speech and movement normal Mood: congruent mood Objective Last Vital Signs Temp 36.9 C 10/11/20 07:39 Pulse 75 10/11/20 07:39 Resp 19 10/11/20 07:39 BP 172/84 H 10/11/20 07:39 Pulse Ox 97 10/11/20 07:39 Laboratory Results - last 24 hr 10/11/20 10/11/20 10/11/20 06:45 06:45 06:45 WBC 7.11 D RBC 3.91 L Hgb 11.1 L D Hct 33.7 L D MCV 86.2 MCH 28.4 MCHC 32.9 RDW 12.8 Plt Count 245 D MPV 9.2 Immature Gran % 0.6 Neutrophils % 64.3 Lymphocytes % 22.5 Monocytes % 7.9 Eosinophils % 4.4 Basophils % 0.3 Nucleated RBC % 0 Absolute Neutrophils 4.57 Absolute Lymphocytes 1.60 Absolute Monocytes 0.56 Absolute Eosinophils 0.31 Absolute Basophils 0.02 VBG Lactate 0.5 L Sodium 141 Potassium 3.7 Chloride 108 H Carbon Dioxide 23.6 Anion Gap 9.4 BUN 14 D Creatinine 1.12 H Estimated GFR/1.73 m2 47.82 Glucose 94 Calcium 8.6 Magnesium 1.8
--- NOTE | 2020-10-11 15:03 | CHAPLAIN ---
Tika was up in her chair when I visited. She was polite, but not interested in a visit at this time.
[2020-10-11 15:50] VITALS: BP 153/85; PULSE 64; RESP 18; TEMP 36.7; O2SAT 99
[2020-10-11] MEDS: Normal Saline 1,000 ML 75 ML IV (21:20)
[2020-10-11 23:54] VITALS: BP 141/84; PULSE 67; RESP 18; TEMP 36.7; O2SAT 97
[2020-10-12 00:28] LABS: COVID-19 RT-PCR UVMMC Result Negative (Negative)
[2020-10-12 07:26] VITALS: BP 170/76; PULSE 79; RESP 18; TEMP 36.7; O2SAT 96
[2020-10-12] MEDS: Donepezil 5 MG TAB PO (08:14)
[2020-10-12] MEDS: Atenolol 25 MG TAB PO (08:14)
[2020-10-12] MEDS: Sertraline 50 MG TAB PO (08:14)
[2020-10-12] MEDS: Heparin 5,000 UNITS/ML VIAL 5000 UNITS SC (08:14)
[2020-10-12] MEDS: Normal Saline 1,000 ML 75 ML IV (11:20)
--- NOTE | 2020-10-12 13:04 | DSE_ITS ---
Date of service: 10/12/20 Time of Service: 13:04 DS: Diagnosis Discharge Diagnosis (1) UTI (urinary tract infection): Status: Acute Asessment and Plan: pansensitive E coli, received ceftriaxone, will di scharge home on 5 more days of keflex. Discharge Plan Disposition Patient Disposition: HOME Condition: Stable Discharge Details Reason For Visit: DEHYDRATION, UTI Admit Date/Time: 10/10/20 14:49 Admit Provider: Danny Villarreal Attending Provider: Danny Villarreal Primary Care Provider: Tash Hess Hospital Course Hospital Course: This is a 70 year old female with history of memory deficit who lives with her sister who presented to the ED with c/o abdominal pain. She had a partial small bowel resection about a year ago for ruptured diverticulitis with abscess. work up in the ED included a CT scan that showed a left small supraumbilical ventral hernia with a small loop ileum within. No bowel wall thickening or bowel obstruction at this time. Associated anastomotic staple line in a mid small bowel loops from prior surgical resection of small bowel, no diverticulosis or diverticulitis, and a large calcified gallstone without CT evidence of cholecystitis. work up also included lab and urine that showed a UTI that grew pansensitive E Coli. She was started on ceftriaxone and admitted to med/surg for further management. She was tolerating PO and passing stool. She had no further abdominal pain. she has remained hemodynamically stable. Her white count normalized, bun and creatinine improving to 14/1.12 from 21/1.27. She is stable and thought to be at her baseline. she is discharged home to her sisters care with no new services. she will complete 5 more days of keflex to complete a 7 day course. discussed with DR Villarreal [place] Meds and New Rx's Prescriptions: New cephalexin 500 mg capsule 500 mg PO Q12H Qty: 10 RF: 0 Continued atorvastatin 20 mg Tablet 10 mg PO Q2D RF: 0 donepezil [Aricept] 5 mg Tablet 5 mg PO DAILY RF: 0 atenolol 25 mg Tablet 25 mg PO DAILY RF: 0 sertraline 50 mg Tablet 50 mg PO DAILY RF: 0 lisinopril 2.5 mg Tablet 2.5 mg PO DAILY RF: 0 Discharge Instructions Instructions: Urinary Tract Infection in Women (DC) Additional Instructions: resume usual medication take antibiotic as prescribed even if you feel better. Stand Alone Forms: Nursing Discharge Form Referrals: Tash Hess [Primary Care Provider] - 10/21/20 3:00 pm Activity:: Activity as Tolerated Equipment/Supplies:: No Equipment Needed Diet:: As Tolerated Discharge Orders Discharge Orders: Discharge Order (Routine); Ordered 10/12/20 Ordered By: Carin Bhatia Discharge Data Discharge Date/Time-TO BE ENTERED AT DEPARTURE: 10/12/20 15:01 DS: Summary Status at Discharge Functional status at discharge: independent ambulation Overall status at discharge: patient is progressing back to baseline Mental Status: mental status grossly normal Speech and Movement: speech and movement normal Mood: congruent mood Affect: normal affect Exam Const General: cooperative, healthy appearing, comfortable and no acute distress Nutritional Appearance: overweight Orientation: alert, awake and oriented to person HENMT Head: normal to inspection, normocephalic and atraumatic Eyes Eyelids: eyelids normal Conjunctivae: conjunctivae normal Sclera: sclerae normal EOM: EOM intact bilaterally Neck Neck: normal visual inspection and full ROM Chest Chest: normal inspection of the chest Resp Effort & Inspection: normal respiratory effort Auscultation: clear to auscultation bilaterally Cardio Jugular venous pressure: no JVD Rate: regular rate Rhythm: regular rhythm Heart Sounds: murmur diastolic GI Inspection: obesity and scar Palpation: soft Auscultation: normal bowel sounds Back/Spine/Pelvis Back: no CVA tenderness Neuro General: patient alert and patient awake Cranial Nerves: EOM intact bilaterally Speech: speech normal Extrem General: edema (trace) Laterality: bilateral Psych Appearance: grossly normal Mental Status: mental status grossly normal Speech and Movement: speech and movement normal Mood: congruent mood Affect: normal affect DS: Data Vitals/I&O Vitals and I&O: Vital Signs Temperature 36.7 C 10/12/20 07:26 Temperature Source Temporal Artery Scan 10/12/20 07:26 Pulse 79 10/12/20 07:26 Pulse Rhythm Regular 10/12/20 08:20 Respiratory Rate 18 10/12/20 07:26 Respiratory Effort Non-Labored 10/12/20 08:20 Respiratory Depth Normal 10/12/20 08:20 Respiratory Pattern Normal 10/12/20 08:20 Blood Pressure 170/76 H 10/12/20 07:26 Blood Pressure Position Sitting 10/10/20 11:09 Pulse Oximetry 96 10/12/20 07:26 Oxygen Delivery Method Room Air 10/12/20 07:26 Oxygen Flow Rate 0 10/12/20 07:26 Pain Level 0 10/12/20 07:26 Intake & Output 10/11/20 10/12/20 10/12/20 23:59 11:59 23:59 Intake Total 1240.00 / 3057.917 1370 / 1610 240 / 1610 Output Total 100 / 650 Balance 1140.00 / 2407.917 1370 / 1610 240 / 1610 Weight 95.7 kg Intake: IV 1000.00 / 0219.118 7764 / 1010 Oral 240 / 1060 360 / 600 240 / 600 Output: Urine 100 / 650 Other: Urine Color Yellow Pale Yellow Urine Appearance Clear Clear Urine Odor Normal Normal Comment pt was incontinent of urine and also voided on the toilet x1 toilet and diaper Stool Size Small Stool Characteristics Soft Voiding Methods Toilet Toilet Incontinent Diaper Data Completed and Pending Labs on day of discharge: Labs from last 24 hours 10/10/20 15:49 SARS-CoV-2 (PCR) Negative Nasopharyn COVID-19 PCR Not Applicable Ref Test Perform Site [facility] lab Preliminary micro results at discharge 10/10/20 14:00 Blood Culture - Preliminary Blood NO GROWTH 24 HOURS 10/10/20 13:45 Blood Culture - Preliminary Blood NO GROWTH 24 HOURS [facility] Medical History (Updated 10/10/20 @ 21:27 by Kate Hunter DO) Abdominal pain Depression Diverticulitis Hernia HTN (hypertension) Hyperlipidemia Memory deficit Surgical History H/O resection of small bowel Social History Smoking/Tobacco Use Status: Never Smoking risk assessment performed?: Yes Alcohol Intake: never Drug use: Never Do you feel safe at home: Yes Do you feel safe in your relationship?: Yes
--- NOTE | 2020-10-12 13:06 | CMDISCH_ITS ---
LACE Index Scoring Tool - Questions: Length of Stay (in days): 2 Acuity (Admit via E.D.?): Yes Comorbidities: Dementia E.D. Visits: 1 - Answers: Total Score: 9 Risk of Readmission: Low Risk Care Management Discharge Reason for Hospitalization: Dehydration, UTI Discharge Plan: CM spoke with Tika's sister and caregiver, Kate who reports Tika is mostly independent in the home setting. She does become agitated when Kate supports her with personal care, but otherwise is content at home, and enjoys watching football and the [employer] and will sometimes even make her own breakfast sandwiches. CM reviewed exterminator helper termite considerations; asset management, LTC Medicaid, and community based supports. Kate reports her daughter is an RN and does their grocery shopping and checks in on them daily as well. Kate declines additional supports at this time; CM reviewed options for outreach when ready. Kate will transport Tika home via private vehicle. Patient/Family Education Needs: Review discharge instructions, discussed self care needs, reviewed community based supports.
[2020-10-12] MEDS: cefTRIAXone 1 GM/50 ML BAG IVPB (14:09)
== END 2020-10-12 15:01 | disposition home or self-care (01) | DRG 690 ==
LOC: ER 15:41 → MS 15:58
PROVIDERS: Nurse Practitioner Family; Admitting Provider Internal Medicine; Emergency Provider Physician Assistant; PCP Nurse Practitioner Adult Health; Visit Provider Internal Medicine
DX: N30.01 Acute cystitis with hematuria (principal); E86.0 Dehydration; R41.3 Other amnesia; B96.20 Unspecified Escherichia coli [E. coli] as the cause of diseases classified elsewhere; F32.9 Major depressive disorder, single episode, unspecified; I10 Essential (primary) hypertension; E78.5 Hyperlipidemia, unspecified; K43.9 Ventral hernia without obstruction or gangrene; Z98.0 Intestinal bypass and anastomosis status
CPT/HCPCS: 36415; 80048; 80053; 83690; 87040; 87077; 96361; 96365; 96375; 99223; 99232; 99233; 99239; 99253; 99285; U0003; 74019; 74177; 81003; 81015; 83605; 83735; 85025; 87086; 87186; J0696; J1644; J2405; J3490

== ENCOUNTER 2024-02-29 07:58 | Outpatient (REF) | payer OTHER, SELFPAY ==
[2024-02-29 10:10] LABS: C Diff PCR Positive (Negative)
== END 2024-02-29 07:59 | disposition home or self-care (01) ==
LOC: LBN 07:58
PROVIDERS: PCP Nurse Practitioner Adult Health; Visit Provider Nurse Practitioner Adult Health
DX: R19.7 Diarrhea, unspecified (principal)
CPT/HCPCS: 87493

== ENCOUNTER 2024-03-25 11:23 | Observation (INO) | payer OTHER, SELFPAY ==
[2024-03-25 11:23] VITALS: BP 184/97; PULSE 75; RESP 17; TEMP 35.7; O2SAT 96
[2024-03-25 11:30] VITALS: BP 184/97; PULSE 75; RESP 17; TEMP 35.7; O2SAT 96
--- NOTE | 2024-03-25 11:30 | RT.EKG_ITS ---
APPROVED REPORT Exam: Resting ECG Reason for Exam: [facility] [address] Patient Location: E HR:87 bpm ECG Measurements Heart Rate 87 AXIS MO 62 P 0 QRSd 88 QRS 37 QT 384 T 230 QTc 458 Conclusion Sinus rhythm...normal P axis, V-rate 60- 99 Atrial premature complexes...SV complexes w/ short R-R intvls Repol abnrm, prob ischemia, anterolateral lds...ST dep, T neg, I aVL V2-V6 sinus rhtyhm, normal axis, nomral intervals, PAC, consider depressions anterior lateral
--- NOTE | 2024-03-25 11:30 | DI.CT_ITS ---
Exam(s) CT HEAD WO EXAM: CT HEAD WO CLINICAL HISTORY: ams. TECHNIQUE: Imaging Protocol: Axial computed tomography images with coronal and sagittal reformatted images were created and reviewed COMPARISON: No exams were available for comparison FINDINGS: Ventricles and Extra axial spaces: Normal in size and morphology for the patient's age. Hemorrhage: None. Cerebral parenchyma: There are areas of decreased attenuation in the white matter consistent with chr onic microvascular ischemic disease. No mass effect is identified at this time. Midline shift: None. Brainstem/Cerebellum: Normal. Calvarium: Normal. Visualized Paranasal sinuses/Mastoids: Clear. Soft Tissues: Unremarkable. IMPRESSION: No acute intracranial process. RADIATION DOSE DELIVERED: 747.15mGy.cm Total DLP DATA REPOSITORY: All CT scans at this facility are submitted to the National Radiology Data Registry (NRDR) Dose Index Registry (DIR) with the [employer] (ACR). RADIATION OPTIMIZATION: All CT scans at this facility use at least one of these dose optimization te chniques: automated exposure control; mA and/or kV adjustment per patient size (includes targeted exa ms where dose is matched to clinical indication); or iterative reconstruction.
--- NOTE | 2024-03-25 11:43 | ED.GENADUL_ITS ---
Discharge Plan Disposition Patient Disposition: Admit to [facility] Condition: Stable Discharge Details Chief Complaint: Urinary Clinical Impression: ADEBAYO (acute kidney injury), Acute dehydration, AMS (altered mental status) Primary Care Provider: Tash Hess ED Provider: Shiva Baker Home Meds and New Rx's Prescriptions: No Action furosemide 20 mg tablet 20 mg PO DAILY trazodone 50 mg tablet 50 mg PO BID trazodone 100 mg tablet 100 mg PO QHS loperamide 2 mg capsule 6 mg PO QHS gabapentin 300 mg capsule 300 mg PO BID losartan 100 mg tablet 100 mg PO DAILY ketoconazole 2 % cream 1 applic TOPICAL .QOD Patient Comments: 3-5 times/ week melatonin 3 mg tablet 3 mg PO QHS One-A-Day Women's Complete 18 mg iron- 400 mcg tablet 1 tab PO DAILY ibuprofen 200 mg tablet 200 mg PO BID acetaminophen [Arthritis Pain Reliever] 650 mg tablet extended release 1,300 mg PO BID triamcinolone acetonide 0.1 % ointment 1 applic topical DAILY Desitin 40 % paste 1 applic topical TID-QID PRN Pepto-Bismol Max St 525 mg/15 mL suspension 525 mg PO ONCE PRN donepezil [Aricept] 5 mg Tablet 10 mg PO DAILY atenolol 25 mg Tablet 25 mg PO DAILY sertraline 50 mg Tablet 25 mg PO DAILY HPI General Date/Time Provider Initiated Documentation: 03/25/24 11:32 . HPI Narrative: 73-year-old female brought in by ambulance after family called for evaluation of possible UTI, patient has not been taking her medications has been in bed for several days usually is ambulatory, noted to be more combative than normal Related Data Home Medications Medication Instructions Recorded Confirmed atenolol 25 mg tablet 25 mg PO DAILY 10/10/20 03/25/24 donepezil 5 mg tablet (Aricept) 10 mg PO DAILY 10/10/20 03/25/24 sertraline 50 mg tablet 25 mg PO DAILY 10/10/20 03/25/24 acetaminophen 650 mg 1,300 mg PO BID 03/25/24 03/25/24 tablet,extended release (Arthritis Pain Reliever) bismuth subsalicylate 525 mg/15 mL 525 mg PO ONCE PRN 03/25/24 03/25/24 oral suspension (Pepto-Bismol Max St) furosemide 20 mg tablet 20 mg PO DAILY 03/25/24 03/25/24 gabapentin 300 mg capsule 300 mg PO BID 03/25/24 03/25/24 ibuprofen 200 mg tablet 200 mg PO BID 03/25/24 03/25/24 ketoconazole 2 % topical cream 1 applic topical .QOD 03/25/24 03/25/24 loperamide 2 mg capsule 6 mg PO QHS 03/25/24 03/25/24 losartan 100 mg tablet 100 mg PO DAILY 03/25/24 03/25/24 melatonin 3 mg tablet 3 mg PO QHS 03/25/24 03/25/24 [id number] 1 tab PO DAILY 03/25/24 03/25/24 fumarate 18 mg-folic acid 400 mcg tablet (One-A-Day Women's Complete) trazodone 100 mg tablet 100 mg PO QHS 03/25/24 03/25/24 trazodone 50 mg tablet 50 mg PO BID 03/25/24 03/25/24 triamcinolone acetonide 0.1 % 1 applic topical DAILY 03/25/24 03/25/24 topical ointment zinc oxide-cod liver oil 40 % 1 applic topical TID-QID PRN 03/25/24 03/25/24 topical paste (Desitin) Allergies Allergy/AdvReac Type Severity Reaction Status Date / Time No Known Allergies Allergy Unverified 10/10/20 11:27 General Stated Complaint: Urinary BETH: 3 Review of Systems Narrative: Review of Systems Constitutional: Combative, bedbound Eyes: negative ENT: negative Cardiovascular: negative Respiratory: negative Gastrointestinal: negative : negative Musculoskeletal: negative Skin: negative Neurologic: negative Psych: negative Exam Narrative Exam Narrative: Physical Examination General: alert, awake, resting comfortably HEENT: normocephalic, atraumatic; PERRL, EOM intact, conjunctiva normal; no nasal discharge; moist mucous membranes, oral and pharyngeal mucosa normal, tolerating secretions Neck: supple, trachea midline; full ROM Chest: normal to inspection Respiratory: normal respiratory effort, speaking in full sentences, clear to auscultation, no wheezing, rales or rhonchi Cardiac: regular rate, regular rhythm, S1S2 intact, no murmurs rubs or gallops GI: abdomen soft, non-tender, non-distended; no palpable mass or hepatosplenomegaly Skin: no lesions, rashes or trauma appreciated Neuro: Moving all extremities nonfocal Extremities: No signs of trauma no edema Course Vital Signs Vital signs: Vital Signs Temperature 35.7 C L 03/25/24 11:23 Pulse 75 03/25/24 11:23 Respiratory Rate 17 03/25/24 11:23 Blood Pressure 184/97 H 03/25/24 11:23 Pulse Oximetry 96 03/25/24 11:23 Temperature 35.7 C L 03/25/24 11:30 Temperature Source Temporal Artery Scan 03/25/24 11:30 Pulse 75 03/25/24 11:30 Respiratory Rate 17 03/25/24 11:30 Respiratory Effort Normal 03/25/24 11:30 Blood Pressure 184/97 H 03/25/24 11:30 Blood Pressure Position Supine 03/25/24 11:30 Pulse Oximetry 96 03/25/24 11:30 Oxygen Delivery Method Room Air 03/25/24 11:30 Oxygen Flow Rate 0 03/25/24 11:30 Pain Level 0 03/25/24 11:30 Comment unable to obtain 03/25/24 11:30 Medical Decision Making 73-year-old female brought in by EMS referred in by family for evaluation of being bedbound over the last couple of days, being more combative than normal, family concerned that she may have a UTI, patient noncompliant with her medications, patient resting comfortably no acute distress at this time temperature 35.7 no to be hypertense on arrival nontachycardic no respiratory symptoms nonfocal neurologic examination. Patient did have a couple episodes of combativeness verbally with staff otherwise calm and cooperative. Consider delirium versus dementia versus infectious process such as UTI viral illness versus electrolyte derangement lower suspicion for cardiac process or toxicologic process muscles consider intracranial process such as stroke or hemorrhage however less likely given history and physical no evidence of trauma however given patient not ambulatory will obtain screening x-ray pelvis will obtain screening x-ray chest and CT head. Labs urinalysis close reassessment 14: 16 evidence of dehydration given ADEBAYO and ketonuria, family unable to care for at home, patient would benefit from rehab placement. Will continue with fluid hydration Quality:SDOH Health Related Social Needs: No Data to Display PFSH All Active Problems (Updated 03/25/24 @ 14:17 by Shiva Baker MD) AMS (altered mental status) (Acute) Acute dehydration (Acute) ADEBAYO (acute kidney injury) (Acute) Abdominal pain (Acute) Memory deficit (Acute) Discharge planning issues (Acute) DVT prophylaxis (Acute) UTI (urinary tract infection) (Acute) Hernia (Acute) Depression (Chronic) HTN (hypertension) (Chronic) Hyperlipidemia (Chronic) Medical History (Updated 03/25/24 @ 14:17 by Shiva Baker MD) Diverticulitis Surgical History H/O resection of small bowel Social History Smoking/Tobacco Use Status: Never Smoking risk assessment performed?: Yes Alcohol Intake: never Drug use: Never Do you feel safe at home: Yes Do you feel safe in your relationship?: Yes
--- NOTE | 2024-03-25 12:07 | NUR.NOTE ---
Pt was very combative during IV/ mancia insertion, Hitting, bitting, scratching, etc.
[2024-03-25 12:10] LABS: Abs Immature Grans 0.09 10^3/uL (0.0-0.06); Absolute Basophil Count 0.08 10^3/uL (0.0-0.2); Absolute Eosinophil Count 0.21 10^3/uL (0.0-0.7); Absolute Monocyte Count 0.97 10^3/uL (0.1-0.8); Basophils % 0.7 %; Eosinophils % 1.9 %; HGB 13.5 g/dL (11.2-15.7); Immature Grans % 0.8 %; Lymphocytes % 23.6 %; MCH 32.8 pg (27.0-33.0); MCHC 35.5 % (32.0-36.0); MCV 92 fL (80-95); MPV 8.8 fL (8.0-11.0); Monocytes % 8.9 %; Neutrophils % 64.1 %; Platelet Count 380 10^3/uL (130-400); RBC 4.12 10^6/uL (3.93-5.22); RDW 15.9 % (11.7-14.6); RDW-SD 53.6 fL; WBC 10.91 10^3/uL (4.4-10.8)
[2024-03-25 12:12] LABS: Bilirubin Negative (Negative); Blood Negative (Negative); Clarity Cloudy (Clear); Glucose Negative (Negative); Ketones 40 mg/dL (Negative); Leukocyte Esterase Negative (Negative); Nitrite Negative (Negative); Specific Gravity >= 1.030 (1.005-1.025); Urobilinogen 0.2 mg/dL (Up to 0.2)
[2024-03-25 12:13] LABS: Absolute Lymphocyte Count 2.57 10^3/uL (1.2-3.4); Absolute Neutrophil Count 6.99 10^3/uL (1.2-6.7)
[2024-03-25 12:28] LABS: ALT 33 U/L (14-59); AST 34 U/L (15-37); Albumin 2.9 g/dL (3.4-5.0); Alkaline Phosphatase 115 U/L (46-116); Anion Gap 17.5 mmol/L (3-11); BUN 9 mg/dL (7-18); Bilirubin, Total 0.8 mg/dL (0.2-1.0); CO2 21.5 mmol/L (21.0-32.0); CREATININE 1.4 mg/dL (0.55-1.02); Calcium 9.3 mg/dL (8.5-10.1); Chloride 105 mmol/L (98-107); Estimated GFR 39.23 (mL/min/1.73m2); Glucose 119 mg/dL (74-106); Potassium 3.3 mmol/L (3.5-5.1); Sodium 144 mmol/L (136-145); Total Protein 6.9 g/dL (6.4-8.2)
[2024-03-25 12:29] LABS: ETHANOL BLOOD < 3.0 mg/dL (<10)
[2024-03-25 12:30] LABS: INR 1.1 (0.9-1.1); PTT Activated 22.1 sec (23.6-32.8)
[2024-03-25 12:38] LABS: Magnesium 2.1 mg/dL (1.8-2.4); TSH (W/Ref FT4) 0.32 uIU/mL (0.36-3.74)
[2024-03-25 12:56] LABS: FREE T4 0.89 ng/dL (0.76-1.46)
[2024-03-25 13:09] LABS: COVID-19 PCR Negative (Negative); Influenza A PCR Negative (Negative); Influenza B PCR Negative (Negative); RSV PCR Negative (Negative)
[2024-03-25 13:15] LABS: Source Nasopharynx
--- NOTE | 2024-03-25 13:26 | DI.RAD_ITS ---
Exam(s) XR CHEST 1V IN DI DEPT EXAM: XR CHEST 1V IN DI DEPT CLINICAL HISTORY: ams TECHNIQUE: 2D digital imaging was performed of the chest. One image was obtained. An AP view was ob tained. COMPARISON: No exams were available for comparison FINDINGS: MEDIASTINUM: Normal. HEART: Cardiomegaly. PULMONARY VASCULATURE: Normal. LUNGS: Clear. PLEURAL SPACE: No pleural effusion or pneumothorax. BONE:Within normal limits for the patient's age. Degenerative changes are seen at the right glenohume ral joint. OTHER FINDINGS:Normal. IMPRESSION: No acute pulmonary findings. DATA REPOSITORY: RADIATION DOSE DELIVERED:
--- NOTE | 2024-03-25 13:26 | DI.RAD_ITS ---
Exam(s) XR PELVIS AP EXAM: XR PELVIS AP CLINICAL HISTORY: ams, not walking. TECHNIQUE: 2D digital imaging was performed.Three images were obtained. COMPARISON: No exams were available for comparison FINDINGS: BONES: No acute fracture is present. No bony destructive lesion is seen. JOINTS: No dislocation present. No joint space narrowing is present. SOFT TISSUE: There is a catheter overlying the pubic bone which is likely a urinary bladder catheter. IMPRESSION: No acute fracture or dislocation. DATA REPOSITORY: RADIATION DOSE DELIVERED:
[2024-03-25] MEDS: Normal Saline 500 ML 1000 ML IV (14:20)
[2024-03-25 15:30] VITALS: BP 164/79; PULSE 70; RESP 19; TEMP 36.8; O2SAT 94
--- NOTE | 2024-03-25 17:20 | HPE_ITS ---
Date of service: 03/25/24 Time of Service: 17:20 Assessment and Plan Assessment and plan (1) AMS (altered mental status): Status: Acute Assessment and plan: Acute on chronic. Not a clear source trigger, though it may be related to c. dif infection that didn't clear. Some RYAN and possible recent trauma, but head CT reassuring. Some shoulder and back pain, but unclear that these are acute. Get ESR for PMR. Some of this is progression of her disease. Qualifiers: Altered mental status type: delirium Qualified Code(s): R41.0 - Disorientation, unspecified (2) ADEBAYO (acute kidney injury): Status: Acute Assessment and plan: Likely prerenal. She hasn't been taking oral fluids and is a dehydrated. She also had bactrim recently. Holding furosemide and ERIKA. Follow in AM (3) Dementia: Status: Chronic Assessment and plan: Appears c/w alzhiemers. conitnue donepezil Palliative care consulted Qualifiers: Dementia type: unspecified type (4) Abnormal EKG: Status: Acute Assessment and plan: She denies any chest pain. ED was not concerned, but since we don't have a comparison will get a troponin, reqesting old records. (5) Hypokalemia: Status: Acute Assessment and plan: Replace in IV fluids (6) HTN (hypertension): Status: Chronic Assessment and plan: refusing medication right now, will resume at least atenolol when able. Restart losartan when Cr returns to baseline. Qualifiers: Hypertension type: essential hypertension Qualified Code(s): I10 - Essential (primary) hypertension (7) DVT prophylaxis: Status: Acute Assessment and plan: enoxaparin (8) Loose stools: Status: Acute Assessment and plan: no longer having overt diarrhea, but with ongoing loose stools. She does have mild WBC count. Get stool antigen. History of Present Illness History of Present Illness Chief Complaint: confusion Narrative: 73 yo F with baseline dementia, depression, HTN, and history of c dificile colitis who is presenting with 2 days of increasing confusion on top of her baseline dementia. History per patience who is her caregiver (along with sister). She first got sick a month ago. She was having loose stools and c dif testing positive, finished 10 day course of Dificid. The stools decreased in frequency but remained loose. About a week ago, she was less active and having some low back pain, she was brought to the ED in [place] and diagnosed with a UTI and treated with bactrim and was doing a little better. For the past 2 days, she has been more combative, not taking her medication, and for the last day not getting out of bed. They decided to bring her to the ED. Review of Systems Narrative: limited by mental status, but she does respond to directive questions some of the time All systems reviewed & are unremarkable except as noted in HPI and below Constitutional Constitutional: Reports chills (a little cold), Denies fever(s), Reports frequent falls (family thinks fall 2 weeks ago but no witness, scrape on her nose healing), Reports headache(s) (vague headache) and Reports poor appetite Eyes Eyes: Denies loss of vision ENT Ears, Nose, Mouth, and Throat: Denies dizziness and Reports headache(s) (vague headache) Musculoskeletal Musculoskeletal: Denies abnormal gait, Reports back pain (more for the past few weeks), Reports arthralgias (shoulders hurt) and Denies joint swelling Integumentary/Breasts Skin/Breast: Reports rash (using cream on yeast in groin) and Denies wounds Neurologic Neurologic: Denies abnormal speech, Denies abnormal gait, Reports behavioral changes, Reports confusion, Denies dizziness, Reports frequent falls (family thinks fall 2 weeks ago but no witness, scrape on her nose healing), Reports headache(s) (vague headache), Denies localized weakness, Denies loss of vision, Reports memory loss and Denies sensory deficit Psychiatric Psychiatric: Reports behavioral changes, Reports confusion, Reports memory loss, Denies visual hallucinations and Denies hallucinations PFSH All Active Problems (Updated 03/25/24 @ 19:04 by Rodo Curtis) Loose stools (Acute) Abnormal EKG (Acute) Hypokalemia (Acute) Dementia (Chronic) AMS (altered mental status) (Acute) Acute dehydration (Acute) ADEBAYO (acute kidney injury) (Acute) Abdominal pain (Acute) Discharge planning issues (Acute) DVT prophylaxis (Acute) UTI (urinary tract infection) (Acute) Depression (Chronic) HTN (hypertension) (Chronic) Hyperlipidemia (Chronic) Medical History (Updated 03/25/24 @ 19:04 by Rodo Curtis) Clostridioides difficile diarrhea Diverticulitis Surgical History (Updated 03/25/24 @ 18:17 by Rodo Curtis) H/O umbilical hernia repair H/O resection of small bowel emergent, perforation? Family History (Updated 03/25/24 @ 18:28 by Rodo Curtis) Mother Dementia Social History (Updated 03/25/24 @ 18:28 by Rodo Curtis) Smoking/Tobacco Use Status: Never Smoking risk assessment performed?: Yes Alcohol Intake: never Drug use: Never Do you feel safe at home: Yes Do you feel safe in your relationship?: Yes Additional Social history: Lives with patience Damico and sister Kate in [facility] Allergies and Home Medications Allergies Allergy/AdvReac Type Severity Reaction Status Date / Time No Known Allergies Allergy Unverified 10/10/20 11: Home Medications Medication Instructions Recorded Confirmed Type atenolol 25 mg tablet 25 mg PO DAILY 10/10/20 03/25/24 History donepezil 5 mg tablet (Aricept) 10 mg PO DAILY 10/10/20 03/25/24 History sertraline 50 mg tablet 25 mg PO DAILY 10/10/20 03/25/24 History acetaminophen 650 mg 1,300 mg PO BID 03/25/24 03/25/24 History tablet,extended release (Arthritis Pain Reliever) bismuth subsalicylate 525 mg/15 mL 525 mg PO ONCE PRN 03/25/24 03/25/24 History oral suspension (Pepto-Bismol Max St) furosemide 20 mg tablet 20 mg PO DAILY 03/25/24 03/25/24 History gabapentin 300 mg capsule 300 mg PO BID 03/25/24 03/25/24 History ibuprofen 200 mg tablet 200 mg PO BID 03/25/24 03/25/24 History ketoconazole 2 % topical cream 1 applic topical .QOD 03/25/24 03/25/24 History loperamide 2 mg capsule 6 mg PO QHS 03/25/24 03/25/24 History losartan 100 mg tablet 100 mg PO DAILY 03/25/24 03/25/24 History melatonin 3 mg tablet 3 mg PO QHS 03/25/24 03/25/24 History ajqupitlohwj-eaeqwiyu-yjbe 1 tab PO DAILY 03/25/24 03/25/24 History fumarate 18 mg-folic acid 400 mcg tablet (One-A-Day Women's Complete) trazodone 100 mg tablet 100 mg PO QHS 03/25/24 03/25/24 History trazodone 50 mg tablet 50 mg PO BID 03/25/24 03/25/24 History triamcinolone acetonide 0.1 % 1 applic topical DAILY 03/25/24 03/25/24 History topical ointment zinc oxide-cod liver oil 40 % 1 applic topical TID-QID PRN 03/25/24 03/25/24 History topical paste (Desitin) Exam Narrative Exam Narrative: GEN: Alert, irritable, oriented to self only. Minimally cooperative with exam, unable to give history. No acute distress at rest. HEENT: Head atraumatic other than 5mm pink ulceration right nasal bridge. Conjunctiva clear, no icterus. PEERL, EOMI. no rhinorrhea. MMM, OP benign. Neck is supple with no masses or lymphadenopathy, trachea midline LUNGS: CTAB with normal effort CV: RRR with 2/6 systlic murmur at LUSB to neck, no gallops, or rubs. ABD: +BS, soft, NT/ND EXT: no cyanosis, clubbing, or edema. Not tender. MSK: No joint redness or swelling, no spinal tenderness NEURO: CN 2-12 grossly intact. Normal movement of 4 extremities. Normal speech and coordination SKIN: No rashes or open wounds other than nose. hyperpigmented patches in intertriginous groin, but not red/infammed PSYCH: normal irritable, poor memory. Results Imaging Chest x-ray: report reviewed (No acute pulmonary findings. ) and image reviewed EKG: report reviewed and image reviewed (sinus, nl axis, intervals. Slight ST depression V3-4 with flat Ts, no previous) Imaging Studies: CT head: No acute intracranial process Pelvic X-ray: No acute fracture or dislocation. Labs 03/25/24 11:56 03/25/24 11:56 Labs: Laboratory Results - last 24 hr 03/25/24 03/25/24 03/25/24 11:56 12:13 12:21 WBC 10.91 H RBC 4.12 Hgb 13.5 Hct 38.0 MCV 92 MCH 32.8 MCHC 35.5 RDW 15.9 H Plt Count 380 MPV 8.8 Immature Gran % 0.8 Neutrophils % 64.1 Lymphocytes % 23.6 Monocytes % 8.9 Eosinophils % 1.9 Basophils % 0.7 Nucleated RBC % 0.0 Absolute Neutrophils 6.99 H Absolute Lymphocytes 2.57 Absolute Monocytes 0.97 H Absolute Eosinophils 0.21 Absolute Basophils 0.08 PT 11.0 INR 1.1 APTT 22.1 L Sodium 144 Potassium 3.3 L Chloride 105 Carbon Dioxide 21.5 Anion Gap 17.5 H BUN 9 Creatinine 1.4 H Est GFR (CKD-EPI 2020) 39.23 Glucose 119 H Calcium 9.3 Magnesium 2.1 Total Bilirubin 0.8 AST 34 ALT 33 Alkaline Phosphatase 115 Total Protein 6.9 Albumin 2.9 L TSH 0.32 L Free T4 0.89 Urine Color Yellow Urine Clarity Cloudy Urine pH 6.0 Ur Specific [place] >= 1.030 H Urine Protein Negative Urine Ketones 40 H Urine Blood Negative Urine Nitrite Negative Urine Bilirubin Negative Urine Urobilinogen 0.2 Ur Leukocyte Esterase Negative Urine Glucose Negative Ethyl Alcohol < 3.0 COVID-19 Source Nasopharynx SARS-CoV-2 (PCR) Negative Influenza Type A (PCR) Negative Influenza Type B (PCR) Negative RSV (PCR) Negative Last Vital Signs Temp 36.8 C 03/25/24 15:30 Pulse 70 03/25/24 15:30 Resp 19 03/25/24 15:30 BP 164/79 H 03/25/24 15:30 Pulse Ox 94 03/25/24 15:30 Time Spent Time spent with Patient: >75 minutes Time was spent: preparing to see the patient(eg.review tests), obtaining and/or reviewing separately otained hiistory, ordering medications,tests, procedures, referring, communicating with other health foster care therapist, indepentently interpreting results, counseling the patient and care coordination
[2024-03-25] MEDS: Haloperidol 5 MG/ML VIAL IM (20:24)
[2024-03-25] MEDS: traZODone 50 MG TAB 150 MG PO (22:15)
[2024-03-25] MEDS: QUEtiapine 25 MG TAB PO (22:15)
[2024-03-25] MEDS: Acetaminophen 325 MG TAB 650 MG PO (22:16)
[2024-03-25] MEDS: Ibuprofen 200 MG TAB PO (22:17)
[2024-03-25] MEDS: Melatonin 3 MG TAB PO (22:17)
[2024-03-25] MEDS: Gabapentin 300 MG CAP PO (22:19)
[2024-03-26 01:03] LABS: C Diff PCR Negative (Negative)
[2024-03-26 04:11] VITALS: PULSE 96; RESP 20; TEMP 37.3; O2SAT 97
[2024-03-26 07:34] VITALS: PULSE 95; RESP 17; TEMP 36.6; O2SAT 95
[2024-03-26] MEDS: Atenolol 25 MG TAB PO (09:06)
--- NOTE | 2024-03-26 09:15 | PDOC.CMIN ---
Date of service: 03/26/24 Time of Service: 09:15 Care Management Initial Assmt Initial Assessment Reason for Hospitalization: ADEBAYO, AMS Functional Status/Living Situation Patient Presentation: Tika was sitting up in bed visiting with her sister and niece when CM met with her. She was pleasant and responded to CM appropriately, although she is confused. Tika has experienced a gradual decline in mentation over the past 6 months or so and has become more aggressive and combative at times, per her niece who is her piston maker. Today they all met with Zoraida Melton from Palliative Care and have decided to take Tika home and admit hrer to hospice. A hospital bed, commode and stacia lift will be needed for equipment, which hospice will coordinate. The discharge is planned for tomorrow if the equipment can be delivered in time. Town of Residence: [place] Resides with: Other (lives with niece and sister) Significant Other/Family: Local Employment Status: Unemployed Instrumental Activities of Daily Living (ADLs): Requires support Medications Medication Management: Issues/Barriers (Tika has been refusing to take her medication more often lately) Advance Directives Advance Directives: Do you have an Advance Directive: N 10/10/20 11:06 AD On File at [facility]: N 10/10/20 15:41 Date Asked 03/25/24 03/25/24 11:33 AD Date Reviewed COLST On File at [facility] COLST Date Scanned Code Status Resuscitation Status DNR/DNI Portal Pt does not currently have a portal and education provided: No Portal Education: Other (dementia) Insurance Coverage/Financial Issues Insurance: [employer] [facility] ACO Member: No Care Team Visit Care Team Role Provider Type Tash Hess Primary Care Provider NURSE PRACTITIONER Shiva Baker MD Emergency Provider [facility] STAFF PHYSICIAN Rodo Curtis Admit Provider [facility] STAFF PHYSICIAN Attending Provider Discharge Potential Discharge Needs: PCP F/U Appt Anticipated Barriers to Discharge: Other (equipment delivery) Patient/Family Education Needs: Review discharge instructions, discuss Ask Me Three Transportation: EMS Plan: Tika will likely be discharged home on hospice tomorrow. She will have a hospital bed, commode and stacia lift delivered for equipment and her niece will continue to provide her care. Transport will be via EMS coordinate by CM. CM will continue to support Tika and her discharge needs. PFSH All Active Problems (Updated 03/26/24 @ 16:07 by Zoraida Melton NP) ACP (advance care planning) (Acute) Comfort measures only status (Acute) Encounter for hospice care discussion (Acute) Mixed Alzheimer's and vascular dementia (Acute) Loose stools (Acute) Abnormal EKG (Acute) Hypokalemia (Acute) Dementia (Chronic) AMS (altered mental status) (Acute) Acute dehydration (Acute) ADEBAYO (acute kidney injury) (Acute) Abdominal pain (Acute) Discharge planning issues (Acute) DVT prophylaxis (Acute) UTI (urinary tract infection) (Acute) Depression (Chronic) HTN (hypertension) (Chronic) Hyperlipidemia (Chronic) Medical History Clostridioides difficile diarrhea Diverticulitis Surgical History H/O umbilical hernia repair H/O resection of small bowel emergent, perforation? Family History Mother Dementia Social History Smoking/Tobacco Use Status: Never Smoking risk assessment performed?: Yes Alcohol Intake: never Drug use: Never Housing: house Do you feel safe at home: Yes Do you feel safe in your relationship?: Yes Additional Social history: Lives with patience Damico and sister Kate in [facility](Care Management) Screening Will the Patient Participate in the Screening?: Unable to obtain Do you worry about having a steady place to live?: no In the past 12 months, have you had to go without electric, gas, oil or water in your home?: no Have you or anyone in your house had to go without enough food to eat?: no Has lack of transportation kept you from medical appointments or from doing things needed for daily living?: no Has anyone in your support network made you feel unsafe for any reason?: no
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
--- NOTE | 2024-03-26 16:33 | CHAPLAIN ---
Zoraida Melton, LELAND, from Palliative Care was with Tika when I visited. Tika's sister Kate and niece, Margaux had stepped out briefly. Tika was reading information off the white board and incorporating that into conversation. Her conversation was linear and didn't often make sense, due to her dementia, but she remained pleasant and engaged with Zoraida and me. The current plan is for Tika to return to Kate and Margaux's home, where they have been her caregivers and for Tika to be admitted to hospice. 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 I let Kate and Margaux know that they can request a visit from the day care home provider for Tika or themselves.
[2024-03-26] MEDS: Lidocaine 5% Patch 2 PATCH TP (16:47)
[2024-03-26] MEDS: MORPHine 4 MG/ML SYR IV/SC (21:53)
--- NOTE | 2024-03-27 12:08 | DSE_ITS ---
Date of service: 03/27/24 Time of Service: 12:08 DS: Diagnosis Discharge Diagnosis (1) Mixed Alzheimer's and vascular dementia: Status: Acute (2) Comfort measures only status: Status: Acute (3) Loose stools: Status: Acute (4) AMS (altered mental status): Status: Acute (5) Acute dehydration: Status: Acute (6) UTI (urinary tract infection): Status: Acute (7) HTN (hypertension): Status: Chronic (8) Encounter for hospice care discussion: Status: Acute (9) ACP (advance care planning): Status: Acute Discharge Plan Disposition Patient Disposition: Home W/Hospice Services Condition: Poor Discharge Details Reason For Visit: Acute Kidney Injury,Mental Status Changes Admit Date/Time: 03/25/24 14:17 Admit Provider: Rodo Curtis Attending Provider: Rodo Curtis Primary Care Provider: [facility] Course Hospital Course: This is a 73-year-old Female patient with past medical history significant for, not limited to, baseline dementia, depression, hypertension, history of C. difficile colitis The patient presented to the [facility] ED 03/25/24 with a two-day history of increasing confusion on top of her baseline dementia. As per the niece, who is the patient's caregiver along with her sister, the patient first fell ill a month ago. She experienced loose stools and tested positive for C. difficile, for which she completed a 10-day course of Dificid. Although the frequency of stools decreased, they remained loose. About a week ago, she exhibited reduced activity and complained of low back pain. She was taken to the ED in [place], where she was diagnosed with a urinary tract infection and treated with Bactrim, showing slight improvement. However, two days prior to admission, she became more combative, refused to take her medication, and for the last day, she remained in bed without getting up. The patient's current presentation suggests a worsening of her baseline dementia, possibly exacerbated by the recent UTI and the history of C. difficile colitis. A thorough neurological examination was conducted to assess cognitive function, motor skills, and any focal neurological deficits. Laboratory tests, including a complete blood count, WBC 10.91, Hgb 13.5, comprehensive metabolic panel, sodium 144, potassium 3.3, creatinine 1.4, TSH 0.32, and urinalysis, negative for infection, were performed to assess for any metabolic abnormalities, infection markers, and electrolyte imbalances.? Considering the patient's altered mental status, a head CT scan was performed to rule out any acute intracranial pathology contributing to her confusion, read by radiologist as no acute intracranial process.? Given the recent history of C. difficile colitis and UTI, further investigation into the possibility of recurrent infection or antibiotic resistance was pursued. Stool studies were sent to assess for C. difficile recurrence, which was negative.? A review of the patient's current medications was conducted to identify any potential drug interactions or adverse effects contributing to her clinical presentation. Ensure adequate hydration and nutrition, considering the patient's recent history of diarrhea and decreased oral intake.? Collaboration with the patient's caregivers, the niece, and sister, is essential to understand the home environment, caregiving challenges, and support systems in place.? The niece and sister were provided with detailed discharge instructions, including medication reconciliation, symptom monitoring, and hospice information. Symptomatic management of the patient's agitation and combative behavior was addressed through non-pharmacological interventions initially, with pharmacotherapy considered if necessary, taking into account the patient's baseline cognitive impairment and potential adverse effects of psychotropic medications.? The niece and sister received ?education regarding the importance of medication adherence, infection prevention strategies, and strategies for managing behavioral symptoms associated with dementia. Hospice was consulted; family will take patient home on hospice.? Patient was started on a fentanyl patch, 12 mcg, for pain. Further medication adjustments per hospice recommendation. Patient is discharged to home, calm, comfortable. Home Meds and New Rx's Prescriptions: Continued furosemide 20 mg tablet 20 mg PO DAILY trazodone 50 mg tablet 50 mg PO BID trazodone 100 mg tablet 100 mg PO QHS loperamide 2 mg capsule 6 mg PO QHS gabapentin 300 mg capsule 300 mg PO BID losartan 100 mg tablet 100 mg PO DAILY ketoconazole 2 % cream 1 applic TOPICAL .QOD Patient Comments: 3-5 times/ week melatonin 3 mg tablet 3 mg PO QHS One-A-Day Women's Complete 18 mg iron- 400 mcg tablet 1 tab PO DAILY ibuprofen 200 mg tablet 200 mg PO BID acetaminophen [Arthritis Pain Reliever] 650 mg tablet extended release 1,300 mg PO BID triamcinolone acetonide 0.1 % ointment 1 applic topical DAILY Desitin 40 % paste 1 applic topical TID-QID PRN Pepto-Bismol Max St 525 mg/15 mL suspension 525 mg PO ONCE PRN donepezil [Aricept] 5 mg Tablet 10 mg PO DAILY atenolol 25 mg Tablet 25 mg PO DAILY sertraline 50 mg Tablet 25 mg PO DAILY Discharge Instructions Instructions: Dementia (including Alzheimer disease), Fentanyl Additional Instructions: Further instructions per hospice Activity:: Activity as Tolerated Equipment/Supplies:: No Equipment Needed Diet:: As Tolerated Discharge Orders Discharge Orders: Discharge Order (Routine); Ordered 03/27/24 Ordered By: Chelsie Shelley DS: Summary Time Spent with Patient providing and/or coordinating discharge services: Greater than 30 minutes Status at Discharge Functional status at discharge: bed bound Overall status at discharge: patient is not back to baseline Mental Status: other (at baseline - dementia) Speech and Movement: speech clear and delayed speech Mood: labile mood and other (at baseline - dementia) Affect: blunted Quality:SDOH Health Related Social Needs: No Data to Display Exam Narrative Exam Narrative: GEN: Alert, irritable, oriented to self only. Minimally cooperative with exam, unable to give history. No acute distress at rest. LUNGS: CTAB with normal effort CV: RRR w systolic murmur (not new) no gallops, or rubs. ABD: +BS, soft, NT/ND EXT: no cyanosis, clubbing. Trace angi edema SKIN: No rashes Psych Mental Status: other (at baseline - dementia) Speech and Movement: speech clear and delayed speech Mood: labile mood and other (at baseline - dementia) Affect: blunted DS: Data Vitals/I&O Vitals and I&O: Vital Signs Temperature 36.6 C 03/26/24 07:34 Temperature Source Tympanic 03/26/24 07:34 Pulse 95 H 03/26/24 07:34 Pulse Rhythm Regular 03/26/24 08:44 Respiratory Rate 17 03/26/24 07:34 Respiratory Effort Normal 03/26/24 08:44 Respiratory Depth Normal 03/26/24 08:44 Respiratory Pattern Normal 03/26/24 08:44 Blood Pressure 164/79 H 03/25/24 15:30 Blood Pressure Position Supine 03/25/24 11:30 Pulse Oximetry 95 03/26/24 07:34 Oxygen Delivery Method Room Air 03/26/24 07:34 Oxygen Flow Rate 0 03/26/24 07:34 Pain Level 0 06/12/24 07:[address] Simona in room blood pressure was high, will recheck manually when pt calms down 03/26/24 07:34 Intake & Output 03/26/24 03/27/24 03/27/24 23:59 11:59 23:59 Other: Urine Color Yellow Urine Appearance Clear Comment incontinent brief changed x1 patient was incontinent of urine at this time Voiding Methods Diaper Diaper Incontinent Incontinent Data Completed and Pending Labs on day of discharge: Labs from last 24 hours 03/26/24 05:35 WBC Cancelled RBC Cancelled Hgb Cancelled Hct Cancelled MCV Cancelled MCH Cancelled MCHC Cancelled RDW Cancelled Plt Count Cancelled MPV Cancelled Immature Gran % Cancelled Neutrophils % Cancelled Band Neutrophils % Cancelled Lymphocytes % Cancelled Atypical Lymphs % Cancelled Monocytes % Cancelled Eosinophils % Cancelled Basophils % Cancelled Metamyelocytes % Cancelled Myelocytes % Cancelled Promyelocytes % Cancelled Other Cells % Cancelled Nucleated RBC % Cancelled Absolute Neutrophils Cancelled Absolute Lymphocytes Cancelled Absolute Monocytes Cancelled Absolute Eosinophils Cancelled Absolute Basophils Cancelled RBC Morphology Cancelled Polychromasia Cancelled Hypochromasia Cancelled Poikilocytosis Cancelled Basophilic Stippling Cancelled Anisocytosis Cancelled Microcytosis Cancelled Macrocytosis Cancelled Spherocytes Cancelled Tear Drop Cells Cancelled Ovalocytes Cancelled Stomatocytes Cancelled Champion-Adrian Bodies Cancelled Quyen Cells/Echinocytes Cancelled Acanthocytes (Spur) Cancelled Schistocytes Cancelled Sodium Cancelled Potassium Cancelled Chloride Cancelled Carbon Dioxide Cancelled Anion Gap Cancelled BUN Cancelled Creatinine Cancelled Est GFR (CKD-EPI 2020) Cancelled Glucose Cancelled Calcium Cancelled PFSH All Active Problems (Updated 03/27/24 @ 12:13 by Chelsie Shelley NP) ACP (advance care planning) (Acute) Comfort measures only status (Acute) Encounter for hospice care discussion (Acute) Mixed Alzheimer's and vascular dementia (Acute) Loose stools (Acute) Abnormal EKG (Acute) Hypokalemia (Acute) Dementia (Chronic) AMS (altered mental status) (Acute) Acute dehydration (Acute) ADEBAYO (acute kidney injury) (Acute) Abdominal pain (Acute) Discharge planning issues (Acute) DVT prophylaxis (Acute) UTI (urinary tract infection) (Acute) Depression (Chronic) HTN (hypertension) (Chronic) Hyperlipidemia (Chronic) Medical History Clostridioides difficile diarrhea Diverticulitis Surgical History H/O umbilical hernia repair H/O resection of small bowel emergent, perforation? Family History Mother Dementia Social History Smoking/Tobacco Use Status: Never Smoking risk assessment performed?: Yes Alcohol Intake: never Drug use: Never Housing: house Do you feel safe at home: Yes Do you feel safe in your relationship?: Yes Additional Social history: Lives with patience Damico and sister Kate in [place] Time Spent with Patient Time Spent with Patient: 45-69 minutes Time was spent: preparing to see the patient(eg.review tests), ordering medications,tests, procedures, referring, communicating with other health primary care sales representative, indepentently interpreting results, counseling the patient and care coordination
[2024-03-27] MEDS: fentaNYL 12 MCG PATCH TD (14:00)
--- NOTE | 2024-03-27 17:17 | PDOC.CMDIS ---
Date of service: 03/27/24 Time of Service: 17:17 LACE Index Scoring Tool Questions: Length of Stay (in days): 2 Was the patient admitted via the E.D.?: Yes Comorbidities: Dementia and Liver or Renal Disease E.D. Visits: 1 Answers: Total Score: 11 Risk of Readmission: High Risk Care Management Discharge Plan Reason for Hospitalization: AMS Discharge Plan: Tika will be discharged home and admitted to hospice tomorrow. She will be followed by the hospice team and plan of care. Tika will be transported via [facility] coordinated by CM. Patient/Family Education Needs: Expectations, limitations, hospice care and services, discuss Ask Me Three Services Needed at Discharge: Home Health Care Services and Transportation SDOH Health Related Social Needs: No Data to Display
[2024-03-27] MEDS: Lidocaine 5% Patch 2 PATCH TP (18:00)
== END 2024-03-27 19:30 | disposition hospice, home (50) ==
LOC: ER 14:34 → MS 15:33
PROVIDERS: Admitting Provider Family Medicine; Emergency Provider Emergency Medicine; PCP Nurse Practitioner Adult Health; Visit Provider Family Medicine
DX: N17.9 Acute kidney failure, unspecified; F01.511 Vascular dementia, unspecified severity, with agitation; G30.9 Alzheimer's disease, unspecified; F02.811 Dementia in other diseases classified elsewhere, unspecified severity, with agitation; R41.0 Disorientation, unspecified; E87.6 Hypokalemia; R94.31 Abnormal electrocardiogram [ECG] [EKG]; I10 Essential (primary) hypertension; R19.5 Other fecal abnormalities; N30.01 Acute cystitis with hematuria; E86.0 Dehydration; Z51.5 Encounter for palliative care; F32.A Depression, unspecified; Z79.899 Other long term (current) drug therapy; E78.5 Hyperlipidemia, unspecified
CPT/HCPCS: 00123; 36415; 51702; 80048; 80053; 85652; 87493; 87637; 93005; 96361; 96374; 99285; 70450; 71045; 72170; 80320; 81003; 83735; 84439; 84443; 84484; 85025; 85610; 85730; 93010; 99223; 99232; 99239; J1630; J2270; J3490